=== PATIENT | female | born 1960 | race Caucasian/White ===

== ENCOUNTER 2018-11-25 20:15 | Emergency (ER) | payer OTHER ==
[2018-11-25 20:17] VITALS: PULSE 89; TEMP 98.3; BMI 28.3
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
[2018-11-25] MEDS ORDERED: ACETAMINOPHEN 325 MG TABLET (FP) PO ONE (22:27)
[2018-11-25] MEDS ORDERED: ACETAMINOPHEN 325 MG TABLET (FP) ONE (22:34)
[2018-11-25 23:04] VITALS: BP 140/73
== END 2018-11-25 23:00 | disposition home or self-care (01) ==
LOC: JERFT 20:15
DX: M54.5 Low back pain (principal); M54.2 Cervicalgia; R51 Headache; V43.52XA Car driver injured in collision with other type car in traffic accident, initial encounter; Y92.414 Local residential or business street as the place of occurrence of the external cause; Y93.89 Activity, other specified; Y99.8 Other external cause status; I10 Essential (primary) hypertension; E11.9 Type 2 diabetes mellitus without complications
CPT/HCPCS: 70450-TC; 72125-TC; 72131-TC; 99281-25

== ENCOUNTER 2020-05-20 09:50 | Inpatient (IN) | payer OTHER ==
--- NOTE | 2020-05-20 10:29 | PDOC ---
History of Present Illness - General Chief Complaint: Altered Mental Status Stated Complaint: AMS Time Seen by Provider: 05/20/20 09:58 History Source: Patient, Family (daughter) Exam Limitations: No Limitations - History of Present Illness Initial Comments: 05/20/20 10:29 59 yo female pmh HTN, HLD and DM presents to the ED for slurred speech and AMS. Daughter at the bedside states pt complaining of R arm numbness yesterday night and approx 1 hour ago, daughter notes slurred speech and altered mental status. Pt AOX3 on arrival, speaking in full sentences and unlabored. Pt denies any complaints however, hesitation noted in her speech along with difficulty following basic commands. Denies ALVARADO, LOC, changes in vision, drooling, N/V/F/C, changes in gait, weakness on 1 side of her body (however, pt noted to be holding her right arm) CP, SOB, changes in bowel or bladder habits. tPA Exclusion checklist 3-4.5h - Time Elapsed Date last known well: 05/19/20 - Thrombolytic Therapy Candidate Is patient eligible for thrombolytic therapy: No - Exclusion Criteria 3-4.5 hr SBP greater than 185 or DBP greater than 110mmHg despite tx: No Recent IC/spinal surgery,head trauma or stroke<3mos.: No Hx IC hemorrhage, IC neoplasm, AV malformation or aneurysm: No Active internal bleeding: No Blding diathesis(low plt ct, inc PTT,INR>1.7 or use of NOAC): No Symptoms suggest subarachnoid hemorrhage: No CT demonstrates multilobar infarct(>1/3 cerebral hemiphere): No Arterial puncture at noncompressible site in previous 7 days: No Blood glucose concentration less than 50mg/dL (2.7mmol/L): No - Relative Exclusion Criteria 3-4.5 hr Care team unable to determine eligibility: No IV/IA thrombolysis/thrombectomy @ another hosp prior arrival: No Life expectancy <1 yr or severe co-morbid illness: No : No Patient/family refused: No Stroke severity too mild (non-disabling): Yes Recent acute CA (w/in previous 3 months): No Seizure at onset with postictal residual neuro impairments: No Major surgery or serious trauma w/in previous 14 days: No Recent GI or hemorrhage (w/in previous 21 days): No - Add'l Relative Exclusion 3-4.5 hr Age > 80: No Hx of both diabetes AND prior ischemic stroke: No Taking an oral anticoagulant regardless of INR: No Severe Stroke (NIHSS >25): No - Ineligibility reason(s) Reasons No tPA given: Outside of window - delayed arrival NIH Stroke Scale - Last Known Well Date/Time & Onset Date Last Known Well: 05/19/20 - Initial Evaluation Level of consciousness: Alert Ask patient the month and their age: Answers both correctly Ask patient to open & close eyes; make fist and let go: Obeys both correctly Best gaze (horizontal eye movement): Normal Visual field testing: No visual field loss Facial paresis (Show teeth/raise eyebrows/close eyes tight): Normal symmetrical movement Motor Function: Left Arm: Normal Motor Function: Right Arm: Normal (extends arm 90 (or 45) degrees for 10 seconds without drift Motor Function: Left Leg: Normal (extends leg 30 degrees for 5 seconds without drift) Motor Function: Right Leg: Normal (extends leg 30 degrees for 5 seconds without drift) Limb Ataxia: No ataxia Sensory(Use pinprick test arms,legs,trunk,face/side to side): Normal Best language (Describe picture, name items, read sentences): No Aphasia Dysarthria (read several words): Mild to moderate slurring of words Extinction and Inattention: No abnormality - Total Score NIH Stroke Scale Score: 1 Past History - Medical History Allergies/Adverse Reactions: Allergies Allergy/AdvReac Type Severity Reaction Status Date / Time No Known Allergies Allergy Verified 05/21/20 08:54 Home Medications: Ambulatory Orders Metoprolol Tartrate [Lopressor -] 12.5 mg PO BID 09/04/16 Azithromycin [Zithromax -] 250 mg PO DAILY #4 tablet 09/05/16 Azithromycin [Zithromax -] 250 mg PO DAILY 4 Days tablet 09/05/16 Fluticasone Prop 0.05% Nasal [Flonase -] 1 - 2 spray NS DAILY #1 spray.pump 09/05/16 Ibuprofen 600 mg PO QID PRN #20 tablet 11/25/18 COPD: No Diabetes: Yes HTN: Yes - Psycho-Social/Smoking History Smoking History: Never smoked Have you smoked in the past 12 months: No Number of Cigarettes Smoked Daily: 20 Information on smoking cessation initiated: No - Substance Abuse Hx (Audit-C & DAST Scrn) How often the patient has a drink containing alcohol: Never Score: In Men: 4 or > Positive; In Women: 3 or > Positive: 0 Screen Result (Pos requires Nsg. Audit-10AR): Negative In the last yr the pt used illegal drug/Rx for NonMed reason: No Score: Yes response is considered Positive: 0 Screen Result (Positive result requires Nsg. DAST-10): Negative Review of Systems - Review of Systems Constitutional: Yes: Symptoms Reported HEENTM: Yes: Symptoms Reported Respiratory: Yes: Symptoms reported Cardiac (ROS): Yes: Symptoms Reported ABD/GI: Yes: Symptoms Reported : Yes: Symptoms Reported Musculoskeletal: Yes: Symptoms Reported Integumentary: Yes: Symptoms Reported Neurological: Yes: Symptoms reported *Physical Exam - Vital Signs Last Vital Signs Temp Pulse Resp BP Pulse Ox 98.8 F 108 H 20 178/57 H 98 05/20/20 10:02 05/20/20 10:02 05/20/20 10:02 05/20/20 10:02 05/20/20 10:02 - Physical Exam General Appearance: Yes: Nourished, Appropriately Dressed. No: Apparent Distress HEENT: positive: EOMI, BEATA Neck: positive: Supple. negative: Carotid bruit Respiratory/Chest: positive: Lungs Clear, Normal Breath Sounds. negative: Respiratory Distress, Accessory Muscle Use, Rapid RR, Crackles, Rales, Rhonchi, Stridor, Wheezing Cardiovascular: positive: Regular Rhythm, S1, S2, Tachycardia. negative: Edema, JVD, Murmur Vascular Pulses: Dorsalis-Pedis (R): 4+, Doralis-Pedis (L): 4+ Gastrointestinal/Abdominal: positive: Flat, Soft. negative: Pulsatile Mass, Protuberent, Distended, Guarding, Rebound, Tenderness Musculoskeletal: negative: CVA Tenderness Extremity: positive: Normal Capillary Refill, Normal Inspection, Normal Range of Motion Integumentary: positive: Normal Color, Dry, Warm Neurologic: positive: fisher lampara net II-XII NML intact, Fully Oriented, Alert, Normal Mood/Affect, Normal Response. negative: Motor Strength 5/5 (R upper ext 4/5 vs L upper ext 5/5) ED Treatment Course - LABORATORY CBC & Chemistry Diagram: 05/21/20 07:06 05/21/20 07:06 - ADDITIONAL ORDERS Additional order review: Laboratory Results 05/20/20 10:00 POC Glucometer 158 05/20/20 10:00 POC Glucometer 158 Medical Decision Making - Medical Decision Making 59 yo female pmh HTN, HLD and DM presents to the ED for slurred speech and AMS. Daughter at the bedside states pt complaining of R arm numbness yesterday night and approx 1 hour ago, daughter notes slurred speech and altered mental status. Pt AOX3 on arrival, speaking in full sentences and unlabored. Pt denies any comp laints however, hesitation noted in her speech along with difficulty following basic commands. Denies ALVARADO, LOC, changes in vision, drooling, N/V/F/C, changes in gait, weakness on 1 side of her body (however, pt noted to be holding her right arm) CP, SOB, changes in bowel or bladder habits. Vitals show elevated HR and BP CT shows non hemorhagic stroke. Pt has persistent confusion and mild focal R arm weakness. Daughter at the bed side states mother is normal at baseline and does not need any assistance. ASA full dose given and Neuro consulted Brain MRI ordered 05/20/20 13:[address] Branham, MRI shows large area of left sided stroke, will do CTA brain and assess for large vessel occlusion CTA neg for large vessel occlusion Noted Hemoglobin 7 and soft BP with maps in the 6low 60s. 500 ML bolus NS given and stool occult sent Stool occult neg. No improvement in pressure and due to stroke with more favorable hypertension, 1 unit PRBC ordered Noted repeat H of 6.6, repeat CBC [address] Gaffney accepts pt and night team aware and will follow up labs Discharge - Discharge Information Problems reviewed: Yes Clinical Impression/Diagnosis: Stroke - Admission Yes - Follow up/Referral - Patient Discharge Instructions - Post Discharge Activity
[2020-05-20] MEDS ORDERED: ASPIRIN 81 MG CHEWABLE TABLETS PO ONE (10:37)
[2020-05-20] MEDS ORDERED: ASPIRIN 81 MG CHEWABLE TABLETS ONE (10:51)
[2020-05-20 11:04] LABS: BASO % 0.5 % (0-2.0); EOS % 0.6 % (0-4.5); HEMATOCRIT 25.7 % (32.4-45.2); LYMPH % 27.6 % (8-40); MCHC 27.4 g/dl (32.0-36.0); MEAN CELL VOLUME 59.3 fl (80-96); MEAN PLT VOLUME 9.1 fl (7.5-11.1); NEUT % 65.3 % (42.8-82.8); PLATELET COUNT 259 K/MM3 (134-434); RBC 4.34 M/mm3 (3.60-5.2); WHITE BLOOD COUNT 8.5 K/mm3 (4.0-10.0)
--- NOTE | 2020-05-20 11:08 | PDOC ---
Attending Attestation - Resident Resident Name: Abhijit Herron - ED Attending Attestation I have performed the following: I have examined & evaluated the patient, The case was reviewed & discussed with the resident, I agree w/resident's findings & plan, Exceptions are as noted - HPI HPI: 05/20/20 12:14 59 years old past medical history significant for hypertension hyperlipidemia diabetes presents to the emergency department with dysarthria x1 day. Last seen normal yesterday. Also complaining of mild right hand numbness Symptoms are mild persistent constant no exacerbating or alleviating factors. - Physicial Exam PE: 05/20/20 12:14 Vitals: Triage Vital signs reviewed General Appearance: No acute distress, well nourished well developed, Head: Atraumatic, Neck: Supple; no Nucal rigidity Cardiac: Regular rate and rhythym, no murmurs, no rubs, no gallops, Lungs: Clear to auscultation bilateral, good air movement bilaterally, Abdomen: Soft, non distended, normal bowel sounds, non tender to palpation Extremities: Full range of motion to all extremities, no cyanosis, clubbing, or edema Skin: Warm and dry, no rashes or lesions, no rash, no petechiae Neuro: AOX3; cranial Nerves 2-12 grossly intact, strength intact to all extremities, sensation intact to all extremities, gait normal Psych: Normal mood, normal affect - Critical Care Time Total Critical Care Time: 45 Critical Care Statement: The care of this patient involved high complexity decision making to prevent further life threatening deterioration of the patient 's condition and/or to evaluate & treat vital organ system(s) failure or risk of failure. - Medical Decision Making 05/20/20 12:25 59 years old with likely small CVA NIHSS 1 Not in window for TPA given last known normal last night Head CT as dictated likely chronic infarcts but will need MRI for better delineation Neurology has been consulted MRI ordered full dose aspirin give Will admit to medicine for further management. Reevaluation MRI demonstrates large area of infarct case we discussed with neurology will obtain CTA Laboratory analysis notable for anemia reevaluation CTA demonstrates no large vessel occlusion guaiac-negative stool Case discussed with neurology will transfuse We will admit to medicine for further management. NIH Stroke Scale - Last Known Well Date/Time & Onset Date Last Known Well: 05/19/20 Time Last Known Well: 22:00 - Initial Evaluation Level of consciousness: Alert Ask patient the month and their age: Answers both correctly Ask patient to open & close eyes; make fist and let go: Obeys both correctly Best gaze (horizontal eye movement): Normal Visual field testing: No visual field loss Facial paresis (Show teeth/raise eyebrows/close eyes tight): Normal symmetrical movement Motor Function: Left Arm: Normal Motor Function: Right Arm: Normal (extends arm 90 (or 45) degrees for 10 seconds without drift Motor Function: Left Leg: Normal (extends leg 30 degrees for 5 seconds without drift) Motor Function: Right Leg: Normal (extends leg 30 degrees for 5 seconds without drift) Limb Ataxia: No ataxia Sensory(Use pinprick test arms,legs,trunk,face/side to side): Normal Best language (Describe picture, name items, read sentences): No Aphasia Dysarthria (read several words): Mild to moderate slurring of words Extinction and Inattention: No abnormality - Total Score NIH Stroke Scale Score: 1 Discharge - Discharge Information Problems reviewed: Yes Clinical Impression/Diagnosis: Stroke Qualifiers: CVA mechanism: unspecified Qualified Code(s): I63.9 - Cerebral infarction, unspecified - Follow up/Referral - Patient Discharge Instructions - Post Discharge Activity
[2020-05-20 11:14] LABS: INR 1.04 (0.83-1.09); PROTHROMBIN TIME (PATIENT) 12.3 SEC (9.7-13.0)
[2020-05-20 11:16] LABS: ACTIVATED PTT 27.6 SECONDS (25.2-36.5)
[2020-05-20 11:21] LABS: MCH 16.2 pg (25.7-33.7)
[2020-05-20 11:37] LABS: ALBUMIN 3.8 g/dl (3.4-5.0); BILIRUBIN,TOTAL 0.4 mg/dL (0.2-1); BLOOD UREA NITROGEN 17.2 mg/dL (7-18); CALCIUM 9.5 mg/dL (8.5-10.1); CREATININE 0.8 mg/dL (0.55-1.3); TOT PROT 7.8 g/dl (6.4-8.2)
--- NOTE | 2020-05-20 12:28 | EKG ---
Test Reason : Blood Pressure : / mmHG Vent. Rate : 094 BPM Atrial Rate : 094 BPM P-R Int : 124 ms QRS Dur : 086 ms QT Int : 366 ms P-R-T Axes : 028 003 002 degrees QTc Int : 457 ms NORMAL SINUS RHYTHM NORMAL ECG NO PREVIOUS ECGS AVAILABLE Confirmed by SONIA RIVERS MD ([id number]) on 05/20/2020 12:28:14 PM Referred By: Confirmed By:SONIA RIVERS MD
[2020-05-20 12:50] LABS: ANISOCYTOSIS 2+; MACROCYTOSIS 0; OVALOCYTE 1+; PLATELET ESTIMATE NORMAL; TEAR DROP CELLS 1+
--- NOTE | 2020-05-20 13:37 | CONSULT ---
Consult - text type - Consultation Consultation Note: Neurology History of Present Illness Chief Complaint: Altered Mental Status - History of Present Illness 59 yo female pmh HTN, HLD and DM presents to the ED for slurred speech and AMS. Daughter at the bedside stated pt complaining of R arm numbness yesterday night and approx 1 hour ago, daughter notes slurred speech and altered mental status and patient was brought to the hospital. Pt AOX3 on arrival, speaking in full sentences and unlabored. during my visit, she did have some hesitation in her speech. I discussed with him results of noncontrast head CT which showed no acute changes. Not TPA candidate as out of window and minimal deficit of speech hesitation. Strength, sensory, mental status were all within normal limits. Discussed with ER, patient does not take a daily aspirin at this time and advised to initiate. MRI brain recommended,, lipid panel. Past History - Medical History Allergies/Adverse Reactions: Allergies Allergy/AdvReac Type Severity Reaction Status Date / Time No Known Allergies Allergy Verified 11/25/18 20:15 Home Medications: Ambulatory Orders Ibuprofen 600 mg PO QID PRN #20 tablet 11/25/18 COPD: No Diabetes: Yes HTN: Yes - Psycho-Social/Smoking History Smoking History: Never smoked Have you smoked in the past 12 months: No Number of Cigarettes Smoked Daily: 20 Information on smoking cessation initiated: No - Substance Abuse Hx (Audit-C & DAST Scrn) How often the patient has a drink containing alcohol: Never Score: In Men: 4 or > Positive; In Women: 3 or > Positive: 0 Screen Result (Pos requires Nsg. Audit-10AR): Negative In the last yr the pt used illegal drug/Rx for NonMed reason: No Score: Yes response is considered Positive: 0 Screen Result (Positive result requires Nsg. DAST-10): Negative REVIEW OF SYSTEMS CONSTITUTIONAL: Absent: fever, chills, diaphoresis, + generalized weakness, malaise HEENT: Absent: rhinorrhea, nasal congestion, throat pain, throat swelling, difficulty swallowing, mouth swelling, ear pain, eye pain, visual changes CARDIOVASCULAR: Absent: chest pain, syncope, palpitations, irregular heart rate, l ightheadedness, peripheral edema RESPIRATORY: Absent: cough, shortness of breath, dyspnea with exertion, orthopnea, wheezing, stridor, hemoptysis GASTROINTESTINAL: Absent: abdominal pain, abdominal distension, nausea GENITOURINARY: Absent: dysuria, frequency, urgency, MUSCULOSKELETAL: Absent: myalgia, SKIN: Absent: rash, itching, pallor HEMATOLOGIC/IMMUNOLOGIC: Absent: easy bleeding, easy bruising, lymphadenopathy, frequent infections ENDOCRINE: Absent: unexplained weight gain, unexplained weight loss, heat intolerance, cold intolerance NEUROLOGIC: Absent: headache, focal weakness or paresthesias, dizziness, seizure, PSYCHIATRIC: Absent: anxiety, depression, suicidal or homicidal ideation, hallucinations. *Physical Exam Vital Signs Period Temp Pulse Resp BP Sys/Marr Pulse Ox Last 24 Hr 98.8 F 94-108 18-20 148-178/57-58 98-98 Gen: Awake, alert, responds to questions appropriately Card: RRR, nml S1,S2 Resp: Normal symmetric effort, lungs clear to auscultation Abdomen: Soft, nontender, bowel sounds active Musculoskeletal: Adequate range of motion without significant deformity Head atraumatic and normocephalic CN: PERRL, EOMI intact, no apparent facial droop, no abnormalities in facial sensation, palate elevates, uvula and tongue midline, speech hesitation noted Motor: Strength intact to confrontation in upper and lower extremities. Tone normal throughout Sensory: Intact to Temperature, light touch, and pinprick in all extremities Reflexes: 2+ biceps, brachioradialis, patellar, achillies Coordination: Intact on [id number] testing CBCD WBC 8.5 K/mm3 (4.0-10.0) 05/20/20 10:10 RBC 4.34 M/mm3 (3.60-5.2) 05/20/20 10:10 Hgb 7.0 GM/dL (10.7-15.3) L 05/20/20 10:10 Hct 25.7 % (32.4-45.2) L 05/20/20 10:10 MCV 59.3 fl (80-96) L 05/20/20 10:10 MCHC 27.4 g/dl (32.0-36.0) L 05/20/20 10:10 RDW 22.0 % (11.6-15.6) H 05/20/20 10:10 Plt Count 259 K/MM3 (134-434) 05/20/20 10:10 MPV 9.1 fl (7.5-11.1) 05/20/20 10:10 CMP Sodium 140 mmol/L (136-145) 05/20/20 10:10 Potassium 4.0 mmol/L (3.5-5.1) 05/20/20 10:10 Chloride 107 mmol/L (98-107) 05/20/20 10:10 Carbon Dioxide 23 mmol/L (21-32) 05/20/20 10:10 Anion Gap 10 MMOL/L (8-16) 05/20/20 10:10 BUN 17.2 mg/dL (7-18) 05/20/20 10:10 Creatinine 0.8 mg/dL (0.55-1.3) 05/20/20 10:10 Random Glucose 172 mg/dL (74-106) H 05/20/20 10:10 Calcium 9.5 mg/dL (8.5-10.1) 05/20/20 10:10 Total Bilirubin 0.4 mg/dL (0.2-1) 05/20/20 10:10 AST 18 U/L (15-37) 05/20/20 10:10 ALT 22 U/L (13-61) 05/20/20 10:10 Alkaline Phosphatase 165 U/L (45-117) H 05/20/20 10:10 Total Protein 7.8 g/dl (6.4-8.2) 05/20/20 10:10 Albumin 3.8 g/dl (3.4-5.0) 05/20/20 10:10 CARDIAC ENZYMES Creatine Kinase 63 U/L (26-192) 05/20/20 10:10 Troponin I < 0.02 ng/ml (0.00-0.05) 05/20/20 10:10 Plan: 59 yo female pmh HTN, HLD and DM presents to the ED for slurred speech and AMS. Daughter at the bedside stated pt complaining of R arm numbness yesterday night and approx 1 hour ago, daughter notes slurred speech and altered mental status and patient was brought to the hospital. Pt AOX3 on arrival, speaking in full sentences and unlabored. during my visit, she did have some hesitation in her speech. I discussed with him results of noncontrast head CT which showed no acute changes. Not TPA candidate as out of window and minimal deficit of speech hesitation. Strength, sensory, mental status were all within normal limits. Discussed with ER, patient does not take a daily aspirin at this time and advised to initiate. MRI brain recommended,, lipid panel. Monitor blood pressure, maintain < 180/110 for now. Monitor ddiabetes, maintain euglycemic range, tight glycemic control.. Monitor lipid profile, statin therapy for now. Speech/swallow eval.
[2020-05-20 14:56] LABS: PH,URINE 5.5 (5.0-8.0); URINE APPEARANCE CLEAR; URINE BILIRUBIN NEGATIVE (NEGATIVE); URINE COLOR YELLOW; URINE GLUCOSE (UA) 3+ (NEGATIVE); URINE KETONE NEGATIVE (NEGATIVE); URINE LEUK ESTERASE NEGATIVE (NEGATIVE); URINE NITRITE NEGATIVE (NEGATIVE); URINE PROTEIN NEGATIVE (NEGATIVE)
[2020-05-20 18:19] LABS: HEMATOCRIT 24.1 % (32.4-45.2); MCHC 27.4 g/dl (32.0-36.0); MEAN CELL VOLUME 58.9 fl (80-96); MEAN PLT VOLUME 8.8 fl (7.5-11.1); PLATELET COUNT 223 K/MM3 (134-434); RBC 4.09 M/mm3 (3.60-5.2); RDW 21.6 % (11.6-15.6); WHITE BLOOD COUNT 7.7 K/mm3 (4.0-10.0)
[2020-05-20 18:21] LABS: MCH 16.1 pg (25.7-33.7)
[2020-05-20 18:22] LABS: HEMOGLOBIN 6.6 GM/dL (10.7-15.3)
--- NOTE | 2020-05-20 21:24 | HP ---
Admitting History and Physical - Admission History of Present Illness: Pt is a 59 y/o female who is a poor historian and has a PMH significant for HTN, HLD and DM Pt presented to the ER slurred speech and AMS. As per medical record daughter stated that pt was complaining of R arm numbness the previous night and approximately 1 hour prior to coming to ER daughter noted slurred speech and altered mental status. In the ER ct scan head showed lt frontal/parietal infarcts. Pt was outside of window for thrombolytics. - Past Medical History Cardiovascular: Yes: HTN, Hyperlipdemia Endocrine: Yes: Diabetes Mellitus - Smoking History Smoking history: Never smoked Have you smoked in the past 12 months: No Aproximately how many cigarettes per day: 20 Home Medications - Allergies Allergies/Adverse Reactions: Allergies Allergy/AdvReac Type Severity Reaction Status Date / Time No Known Allergies Allergy Verified 11/25/18 20:15 - Home Medications Home Medications: Ambulatory Orders Ibuprofen 600 mg PO QID PRN #20 tablet 11/25/18 Family Medical History Family History: Unremarkable Review of Systems - Review of Systems Constitutional: reports: Weakness Eyes: reports: No Symptoms HENT: reports: No Symptoms Neck: reports: No Symptoms Cardiovascular: reports: No Symptoms Respiratory: reports: No Symptoms Gastrointestinal: reports: No Symptoms Genitourinary: reports: No Symptoms Physical Examination Vital Signs: Vital Signs Temperature 98.3 F 05/20/20 20:11 Pulse Rate 66 05/20/20 20:11 Respiratory Rate 13 05/20/20 20:11 Blood Pressure 149/49 L 05/20/20 20:11 O2 Sat by Pulse Oximetry (%) 97 05/20/20 20:11 Constitutional: Yes: No Distress Eyes: Yes: WNL HENT: Yes: WNL Neck: Yes: WNL, Supple Cardiovascular: Yes: WNL, Regular Rate and Rhythm Respiratory: Yes: WNL, Regular, CTA Bilaterally Gastrointestinal: Yes: WNL, Normal Bowel Sounds, Soft Extremities: Yes: WNL Edema: No Neurological: Yes: WNL, Alert, Oriented ...Motor Strength: WNL Labs: CBC, BMP 05/20/20 18:00 05/20/20 10:10 Problem List - Problems (1) CVA (cerebral vascular accident) Assessment/Plan: CTA head was unremarkable MRI brain showed multiple infarcts Lt parietal/frontal areas Cont asa/lipitor Check echo/carotid dopplers Neuro/cardio consults Code(s): I63.9 - CEREBRAL INFARCTION, UNSPECIFIED
[2020-05-20] MEDS ORDERED: ATORVASTATIN CA 20 MG TABLET (FP) PO SCH (22:00)
[2020-05-20] MEDS ORDERED: HEPARIN NA (PORCINE) 5,000 UNITS/ML 1ML VIAL ONE (22:59)
[2020-05-20] MEDS ORDERED: ATORVASTATIN CA 20 MG TABLET (FP) ONE (22:59)
[2020-05-20] MEDS: HEPARIN NA (PORCINE) 5,000 UNITS/ML 1ML VIAL SQ SCH (23:07)
[2020-05-21 01:37] VITALS: BMI 27.5
[2020-05-21 08:02] LABS: BASO % 0.5 % (0-2.0); EOS % 1.1 % (0-4.5); HEMATOCRIT 27.2 % (32.4-45.2); HEMOGLOBIN 7.8 GM/dL (10.7-15.3); LYMPH % 34.7 % (8-40); MCHC 28.5 g/dl (32.0-36.0); MEAN CELL VOLUME 61.4 fl (80-96); MEAN PLT VOLUME 8.5 fl (7.5-11.1); MONO % 7.3 % (3.8-10.2); NEUT % 56.4 % (42.8-82.8); PLATELET COUNT 226 K/MM3 (134-434); RBC 4.42 M/mm3 (3.60-5.2); RDW 24.3 % (11.6-15.6); WHITE BLOOD COUNT 7.9 K/mm3 (4.0-10.0)
[2020-05-21 08:25] LABS: ALBUMIN 3.4 g/dl (3.4-5.0); BILIRUBIN,TOTAL 0.6 mg/dL (0.2-1); BLOOD UREA NITROGEN 16.6 mg/dL (7-18); CALCIUM 8.8 mg/dL (8.5-10.1); CREATININE 0.6 mg/dL (0.55-1.3); POTASSIUM 3.9 mmol/L (3.5-5.1); TOT PROT 7.2 g/dl (6.4-8.2)
[2020-05-21 08:41] LABS: MCH 17.5 pg (25.7-33.7)
[2020-05-21] MEDS: HEPARIN NA (PORCINE) 5,000 UNITS/ML 1ML VIAL SQ SCH ×2 (09:28→22:00)
[2020-05-21] MEDS: ASPIRIN 81 MG CHEWABLE TABLETS PO SCH (09:28)
--- NOTE | 2020-05-21 09:42 | PN ---
Progress Note (short form) - Note Progress Note: Neurology History of Present Illness 59 yo female pmh HTN, HLD and DM presents to the ED for slurred speech and AMS. Daughter at the bedside stated pt complaining of R arm numbness yesterday night and approx 1 hour prior to admission, daughter noted slurred speech and altered mental status and patient was brought to the hospital. Pt AOX3 on arrival, speaking in full sentences and unlabored. during my visit, she did have some hesitation in her speech. I discussed with him results of noncontrast head CT which showed no acute changes. Not TPA candidate as out of window and minimal deficit of speech hesitation. MRI brain completed, discussed with ER, acute/subacute, L sided, parieto-occipital but also frontal. Advised CTA to eval for possibly inverntion, CTA negative. Patient needs further workup including ca rotid doppler, tele monitoring for Afib, speech/swallow eval. Active Medications Aspirin (Asa -) 81 mg PO DAILY [facility] Last Admin: 05/21/20 09:28 Dose: 81 mg Documented by: Atorvastatin Calcium (Lipitor -) 20 mg PO HS [facility] Last Admin: 05/20/20 23:08 Dose: 20 mg Documented by: Heparin Sodium (Porcine) (Heparin -) 5,000 unit SQ BID [facility] Last Admin: 05/21/20 09:28 Dose: 5,000 unit Documented by: Vital Signs Period Temp Pulse Resp BP Sys/Marr Pulse Ox Last 24 Hr 97.7 F-99.2 F 64-108 11-20 122-178/40-65 96-98 CBCD WBC 7.9 K/mm3 (4.0-10.0) 05/21/20 07:06 RBC 4.42 M/mm3 (3.60-5.2) 05/21/20 07:06 Hgb 7.8 GM/dL (10.7-15.3) L 05/21/20 07:06 Hct 27.2 % (32.4-45.2) L 05/21/20 07:06 MCV 61.4 fl (80-96) L 05/21/20 07:06 MCHC 28.5 g/dl (32.0-36.0) L 05/21/20 07:06 RDW 24.3 % (11.6-15.6) H 05/21/20 07:06 Plt Count 226 K/MM3 (134-434) 05/21/20 07:06 MPV 8.5 fl (7.5-11.1) 05/21/20 07:06 CMP Sodium 138 mmol/L (136-145) 05/21/20 07:06 Potassium 3.9 mmol/L (3.5-5.1) 05/21/20 07:06 Chloride 108 mmol/L (98-107) H 05/21/20 07:06 Carbon Dioxide 24 mmol/L (21-32) 05/21/20 07:06 Anion Gap 5 MMOL/L (8-16) L 05/21/20 07:06 BUN 16.6 mg/dL (7-18) 05/21/20 07:06 Creatinine 0.6 mg/dL (0.55-1.3) 05/21/20 07:06 Random Glucose 87 mg/dL (74-106) 05/21/20 07:06 Calcium 8.8 mg/dL (8.5-10.1) 05/21/20 07:06 Total Bilirubin 0.6 mg/dL (0.2-1) 05/21/20 07:06 AST 20 U/L (15-37) 05/21/20 07:06 ALT 20 U/L (13-61) 05/21/20 07:06 Alkaline Phosphatase 148 U/L (45-117) H 05/21/20 07:06 Total Protein 7.2 g/dl (6.4-8.2) 05/21/20 07:06 Albumin 3.4 g/dl (3.4-5.0) 05/21/20 07:06 CARDIAC ENZYMES Creatine Kinase 77 U/L (26-192) 05/20/20 23:25 Troponin I < 0.02 ng/ml (0.00-0.05) 05/20/20 23:25 Plan: 59 yo female pmh HTN, HLD and DM presents to the ED for slurred speech and AMS. Daughter at the bedside stated pt complaining of R arm numbness yesterday night and approx 1 hour ago, daughter notes slurred speech and altered mental status and patient was brought to the hospital. Pt AOX3 on arrival, speaking in full se ntences and unlabored. during my visit, she did have some hesitation in her speech. I discussed with him results of noncontrast head CT which showed no acute changes. Not TPA candidate as out of window and minimal deficit of speech hesitation. MRI brain completed, discussed with ER, acute/subacute, L sided, parieto-occipital but also frontal. Advised CTA to eval for possibly inverntion, CTA negative. Patient needs further workup including carotid doppler, tele monitoring for Afib, speech/swallow eval. LDL 147, will increase statin to 40mg. Monitor blood pressure, maintain < 160/100 for now. Monitor ddiabetes, maintain euglycemic range, tight glycemic control.. PT/OT as tolerated. Speech/swallow eval.
--- NOTE | 2020-05-21 11:01 | ECHO ---
Name: BEREKET DEL ROSARIO Exam:Adult Echocardiogram Study Date: 05/21/2020 10:13 AM Age: 59 yrs Reason For Study: CVA MMode/2D Measurements & Calculations IVSd: 1.0 cm Ao root diam: 2.4 cm LVIDd: 3.5 cm LA dimension: 3.6 cm LVIDs: 2.4 cm LVPWd: 1.3 cm LVPWs: 1.4 cm EDV(Teich): 49.5 ml ESV(Teich): 19.9 ml LAV (MOD-bp): 50.0 ml TAPSE: 1.8 cm RV S Tor: 19.1 cm/sec Doppler Measurements & Calculations MV E max tor: 79.5 cm/sec Ao V2 max: 129.9 cm/sec MV A max tor: 60.2 cm/sec Ao max P.8 mmHg MV E/A: 1.3 MV dec time: 0.25 sec LV V1 max P.6 mmHg PA V2 max: 120.1 cm/sec LV V1 max: 94.3 cm/sec PA max P.8 mmHg Med Peak E' Tor: 5.9 cm/sec Med E/e': 13.4 Lat Peak E' Tor: 9.0 cm/sec Lat E/e': 8.8 Procedure A complete two-dimensional transthoracic echocardiogram was performed (2D, M-mode, Doppler and color flow Doppler). The patient was in normal sinus rhythm during the exam. Left Ventricle The left ventricular size, thickness and function are normal. Ejection Fraction = 65%. E/A reversal c onsistent with but not diagnostic of poor LV compliance. The left ventricular wall motion is normal. Right Ventricle The right ventricle is normal in size and function. Atria Normal left and right atrial size and function. Mitral Valve The mitral valve is normal in structure and function. There is trace to mild mitral regurgitation. Tricuspid Valve The tricuspid valve is normal in structure and function. There is trace tricuspid regurgitation. Ther e was insufficient TR detected to calculate RV systolic pressure. Aortic Valve The aortic valve is normal in structure and function. Great Vessels The aortic root is normal size. Pericardium/Pleura There is no pericardial effusion. There is no pleural effusion. Interpretation Summary This degree of valvular regurgitation is within normal limits. The left ventricular size, thickness a nd function are normal Ejection Fraction = 65%. MD Migue Chowdary 05/21/2020 11:00 AM
--- NOTE | 2020-05-21 13:49 | CON.CARD ---
Consult Consult Specialty:: cardiology Reason for Consultation:: CVA - History of Present Illness Chief Complaint: Pt A&Ox3; moves all extremities well; hesitatant speech when answering questions History of Present Illness: Ms. Hoyt is a 59 yo female with pmh HTN, diastolic CHF, HLD, anemia, and DM, who presents to the ED for slurred speech and AMS. Daughter at the bedside stated pt complaining of R arm numbness yesterday night and approx 1 hour ago, with slurred speech and altered mental status. Pt AOX3 on arrival was speaking in full sentences, with some hesitation in speech, per neurologist. Noncontrast head CT showed no acute changes. Not TPA candidate, as out of window and minimal deficit of speech hesitation. Strength, sensory, mental status were all within normal limits. Dr. Branham, neurologist, recommended ASA; MRI brain, lipid panel. 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 Cardio/Vascular: Yes: HTN, Hyperlipdemia Pulmonary: No: Asthma Reproductive: Yes: Postmenopausal ...: No Heme/Onc: Yes: Anemia Endocrine: Yes: Diabetes Mellitus - Alcohol/Substance Use Hx Alcohol Use: No - Smoking History Smoking history: Current every day smoker Have you smoked in the past 12 months: Yes Aproximately how many cigarettes per day: 20 Home Medications - Allergies Allergies/Adverse Reactions: Allergies Allergy/AdvReac Type Severity Reaction Status Date / Time No Known Allergies Allergy Verified 05/21/20 08:54 - Home Medications Home Medications: Ambulatory Orders Metoprolol Tartrate [Lopressor -] 12.5 mg PO BID 09/04/16 Azithromycin [Zithromax -] 250 mg PO DAILY #4 tablet 09/05/16 Azithromycin [Zithromax -] 250 mg PO DAILY 4 Days tablet 09/05/16 Fluticasone Prop 0.05% Nasal [Flonase -] 1 - 2 spray NS DAILY #1 spray.pump 09/05/16 Ibuprofen 600 mg PO QID PRN #20 tablet 11/25/18 Review of Systems - Review of Systems Constitutional: reports: No Symptoms Eyes: reports: No Symptoms HENT: reports: No Symptoms Neck: reports: No Symptoms Cardiovascular: denies: No Symptoms Respiratory: reports: No Symptoms Gastrointestinal: denies: No Symptoms Genitourinary: reports: No Symptoms Breasts: reports: No Symptoms Reported Musculoskeletal: reports: No Symptoms Integumentary: reports: No Symptoms Neurological: reports: Change in Speech Endocrine: reports: No Symptoms Hematology/Lymphatic: reports: No Symptoms Psychiatric: reports: Anxiety - Risk Factors Known Risk Factors: Yes: Age, Diabetes Mellitus, Hypercholesterolemia, Hypertension, Physical Inactivity Vital Signs: Vital Signs Temperature 98.1 F 05/21/20 09:00 Pulse Rate 72 05/21/20 09:00 Respiratory Rate 18 05/21/20 09:00 Blood Pressure 148/64 05/21/20 09:00 O2 Sat by Pulse Oximetry (%) 97 05/21/20 09:00 Constitutional: Yes: Well Nourished, Anxious Eyes: Yes: WNL HENT: Yes: WNL Neck: Yes: WNL Respiratory: Yes: WNL Gastrointestinal: Yes: WNL Renal/: No: Anuria Cardiovascular: Yes: WNL JVD: No Carotid Bruit: No PMI: Non-Displaced Heart Sounds: Yes: S1, S2 Murmur: No: Diastolic Murmur Musculoskeletal: Yes: WNL Extremities: Yes: WNL Edema: No Peripheral Pulses WNL: Yes Integumentary: Yes: WNL Neurological: Yes: Alert, Oriented, Dysarthria, Weakness Psychiatric: Yes: Alert, Oriented, Other (anxiety) - Other Data Labs, Other Data: CBC, BMP 05/21/20 07:06 05/21/20 07:06 INR, PTT INR 1.04 (0.83-1.09) 05/20/20 10:10 Troponin, BNP 05/20/20 23:25 Troponin I < 0.02 Troponin, BNP 05/20/20 23:25 Troponin I < 0.02 Abnormal Lab Results 05/22/20 05/22/20 06:00 06:00 Hgb 7.6 L Hct 26.5 L MCV 61.1 L MCH 17.5 L MCHC 28.7 L RDW 24.4 H Lymphocytes % 40.5 H Chloride 109 H BUN 23.8 H Random Glucose 123 H Alkaline Phosphatase 143 H Problem List - Problems (1) Diabetes Code(s): E11.9 - TYPE 2 DIABETES MELLITUS WITHOUT COMPLICATIONS (2) Anemia Code(s): D64.9 - ANEMIA, UNSPECIFIED (3) CVA (cerebral vascular accident) Code(s): I63.9 - CEREBRAL INFARCTION, UNSPECIFIED (4) Carotid stenosis Code(s): I65.29 - OCCLUSION AND STENOSIS OF UNSPECIFIED CAROTID ARTERY (5) HLD (hyperlipidemia) Code(s): E78.5 - HYPERLIPIDEMIA, UNSPECIFIED Assessment/Plan COVID not detected Acute/subacute cerebral infarcts HTN DM Hyperlipidemia Diastolic CHF anemia long-term cigarette smoker Plan: MRI brain: multiple left-sided acute/subacute infarcts. Carotid US: moderate plaque with 70% to near-occlusion of bifurcation/bulb CCA; f/u CTA neck, vascular team. TNI < 0.02 x 2 EKG: normal sinus rhythm; normal study ECHO: normal LVEF; diastolic dysfunction; trace-mild MR; trace TR. elevated LDL cholesterol, low HDL; on atorvastatin (start high-dose). Help with cigarette cessation Plan on coronary artery evaluation when stable.
--- NOTE | 2020-05-21 15:45 | CONSULT ---
Admitting History and Physical - Primary Care Physician PCP: Bertha Gaffney - Admission History of Present Illness: 59 yo female pmh HTN, HLD and DM presents to the ED for slurred speech AMS, R arm numbness speech hesitation. MRI brain: multiple left-sided acute/subacute cortical/subcortical infarcts. 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 Cardiovascular: Yes: HTN, Hyperlipdemia ...: No Heme/Onc: Yes: Anemia Endocrine: Yes: Diabetes Mellitus - Smoking History Smoking history: Never smoked Have you smoked in the past 12 months: No Aproximately how many cigarettes per day: 20 - Alcohol/Substance Use Hx Alcohol Use: No History - Admission Reason For Visit: CVA - Diagnostics MRI: Report Reviewed (MRI brain: multiple left-sided acute/subacute cortical/subcortical infarcts.) Other: Report Reviewed (Carotid US: moderate plaque with 70% to near-occlusion of bifurcation/bulb CCA) - General Mental Status: Alert and Oriented, Awake and Alert, Able to Follow Commands Attention: Intact Ability to Follow Directions: Fair Head/Neck Control: Good - Hearing Hearing: Normal Hearing Aide: No With Patient: No Speech Evaluation - Communication Primary Language: MALAGASY Communication: Yes: Aphasia Oral Expression Ability: Yes: Moderate Impairment - Speech Production Able to Make Needs Known: Yes: Moderately Impaired Intelligibility: Yes: WNL - Speech Characteristics Voice Loudness: Normal Voice Pitch: Yes: Normal Voice Phonatory-based Quality: Yes: Normal Speech Pattern: Impaired Speech Clarity: < 100% Nasal Resonance: Normal Articulation: Yes: Precise - Language/Auditory Comprehension Follows: Yes: 1 Stage Simple Commands, 2 Stage Simple Commands (Slow to process and respond to simple 2 step directives) Observation: Able to respond to yes/no queries: Yes, Comprehends Conversational Speech: No (simple, slow presentation), Benefits from Slow Speech: Yes, Benefits from Repetiton: Yes - Language/Verbal Expression Aphasia: Yes: Nonfluent, Anomia Able to Respond to Simple Queries: Yes: Moderately Impaired Able to Communicate Wants and Needs: Yes: Moderately Impaired Functional Communication Status: Yes: Moderately Impaired Attempts to Correct Errors: Yes - 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: WNL Short Term Memory: Yes: WNL - Swallow Evaluation/Bedside Assessment Current Nutritional Intake: Regular, Thin Liquids Oral Secretions: Yes: WFL Dentition: Yes: Adequate Facial Symmetry at Rest: Symmetrical Facial Symmetry on Retraction: Symmetrical Facial Movement: Controlled Sensation: Normal Against Resistance Opening: Normal Against Resistance Closing: Normal Pucker Lips: Normal Smile: Normal Lingual Movement: Normal, Symmetric Lingual Speed of Movement: Normal Lingual Movement Strgth Against Opposition: Normal Lingual Movement Characteristics: Normal Velopharyngeal Movement: Normal Laryngeal Elevation: WFL Laryngeal Movement: Able to Palpate Rate of Intake: WFL Bolus Size: WFL Labial Seal: WFL Chewing: WFL Oral Prep Time: WFL A-P Transit: WFL Pocketing: None Timing of Swallow: WFL Coughing/Throat Clear: No Change in Voice: No Recommendations - Speech Evaluation, Impression/Plan Impression: 59 yo w, premorbidly, fully functional in ADL and communication, 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 She seems cognitively intact. She is producing simple, hesitant basic sentences, hesitant in word retrieval. She can not express herself in longer sentnces or pair sentences t ogether.Good simple confrontation naming.Reading/writing not assessed yet but likely impaired. - Disposition Discharge to: Rehabilitation Center (Excellent candidate for intensive, acute rehabilitation to return to prior level of functioning for ADL and maybe work) - Dysphagia Impressions/Plan Swallowing Skills: WF Dysphagia Impressions: No Impairment - Recommendations Diet Consistency: Regular Medication Administration: Whole with water Liquids: Thin Liquids
--- NOTE | 2020-05-21 17:55 | CON.HO ---
Consult Consult Specialty:: Hematology Reason for Consultation:: Anemia - History of Present Illness History of Present Illness: 59 y/o lady who is a poor historian and has a PMH significant for HTN, HLD and DM Pt presented to the ER slurred speech and AMS. As per medical record daughter stated that pt was complaining of R arm numbness the previous night and approximately 1 hour prior to coming to ER daughter noted slurred speech and altered mental status. In the ER ct scan head showed lt frontal/parietal infarcts. Pt was outside of window for thrombolytics. Hematology consulted for anemia. 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 Cardio/Vascular: Yes: HTN, Hyperlipdemia ...: No Endocrine: Yes: Diabetes Mellitus - Alcohol/Substance Use Hx Alcohol Use: No - Smoking History Smoking history: Never smoked Have you smoked in the past 12 months: No Aproximately how many cigarettes per day: 20 Home Medications - Allergies Allergies/Adverse Reactions: Allergies Allergy/AdvReac Type Severity Reaction Status Date / Time No Known Allergies Allergy Verified 05/21/20 08:54 - Home Medications Home Medications: Ambulatory Orders Metoprolol Tartrate [Lopressor -] 12.5 mg PO BID 09/04/16 Azithromycin [Zithromax -] 250 mg PO DAILY #4 tablet 09/05/16 Azithromycin [Zithromax -] 250 mg PO DAILY 4 Days tablet 09/05/16 Fluticasone Prop 0.05% Nasal [Flonase -] 1 - 2 spray NS DAILY #1 spray.pump 09/05/16 Ibuprofen 600 mg PO QID PRN #20 tablet 11/25/18 Review of Systems - Review of Systems Constitutional: reports: No Symptoms Eyes: reports: No Symptoms HENT: reports: No Symptoms Neck: reports: No Symptoms Cardiovascular: reports: No Symptoms Respiratory: reports: No Symptoms Gastrointestinal: reports: No Symptoms Genitourinary: reports: No Symptoms Musculoskeletal: reports: No Symptoms Integumentary: reports: No Symptoms Neurological: reports: Other Hematology/Lymphatic: reports: No Symptoms Psychiatric: reports: No Symptoms Physical Exam Vital Signs: Vital Signs Temperature 98.0 F 05/21/20 17:00 Pulse Rate 73 05/21/20 17:00 Respiratory Rate 20 05/21/20 17:00 Blood Pressure 156/83 05/21/20 17:00 O2 Sat by Pulse Oximetry (%) 97 05/21/20 09:00 Constitutional: Yes: Well Nourished, No Distress, Calm Eyes: Yes: WNL, Conjunctiva Clear, EOM Intact HENT: Yes: WNL, Atraumatic, Normocephalic Neck: Yes: WNL, Supple, Trachea Midline Cardiovascular: Yes: WNL, Regular Rate and Rhythm Respiratory: Yes: WNL, Regular, CTA Bilaterally Gastrointestinal: Yes: WNL, Normal Bowel Sounds, Soft Musculoskeletal: Yes: WNL Extremities: Yes: WNL Labs: CBC, BMP 05/21/20 07:06 05/21/20 07:06 Assessment/Plan 59 y/o lady who is a poor historian and has a PMH significant for HTN, HLD and DM Pt presented to the ER slurred speech and AMS. As per medical record daughter stated that pt was complaining of R arm numbness the previous night and approximately 1 hour prior to coming to ER daughter noted slurred speech and altered mental status. In the ER ct scan head showed lt frontal/parietal-pa rieto-occipital infarcts. Hematology consulted for anemia. Pt denied prior history or family cases. Denied other hematologic or oncologic problems however no optimal historian. Denied having colonoscopy Recommend: 1) Anemia, microcytic and hypochromic. Obtain: Iron profile: Fe, TIBC, Ferritin; LDH, Haptoglobin, Vitamin B12, Folate levels and hemoglobin electrophoresis. 2) Guaiac Stools X3. Repeat UA. 3) Consider GI evaluation if SHANIA is diagnosed. 4) Thank you very much for this consultation
--- NOTE | 2020-05-21 21:56 | PN ---
Progress Note, Physician History of Present Illness: Pt w/ aphasia - Current Medication List Current Medications: Active Medications Aspirin (Asa -) 81 mg PO DAILY [facility] Last Admin: 05/21/20 09:28 Dose: 81 mg Documented by: Atorvastatin Calcium (Lipitor -) 40 mg PO HS [facility] Heparin Sodium (Porcine) (Heparin -) 5,000 unit SQ BID [facility] Last Admin: 05/21/20 09:28 Dose: 5,000 unit Documented by: - Objective Vital Signs: Vital Signs Temperature 98.0 F 05/21/20 17:00 Pulse Rate 73 05/21/20 17:00 Respiratory Rate 05/21/20 17:00 Blood Pressure 156/83 05/21/20 17:00 O2 Sat by Pulse Oximetry (%) 97 05/21/20 09:00 Cardiovascular: Yes: WNL, Regular Rate and Rhythm Respiratory: Yes: WNL, Regular, CTA Bilaterally Gastrointestinal: Yes: WNL, Normal Bowel Sounds, Soft Neurological: Yes: Aphasia ...Motor Strength: WNL Labs: CBC, BMP 05/21/20 07:06 05/21/20 07:06 INR, PTT INR 1.04 (0.83-1.09) 05/20/20 10:10 Problem List - Problems (1) CVA (cerebral vascular accident) Assessment/Plan: CTA head was unremarkable MRI brain showed multiple infarcts Lt parietal/frontal areas Cont asa/lipitor Echo unremarkable Carotid doppler: 70% occulsion bifurcation/bulb Check CTA neck Vascular surgery consult Code(s): I63.9 - CEREBRAL INFARCTION, UNSPECIFIED (2) HLD (hyperlipidemia) Assessment/Plan: Cont lipitor Code(s): E78.5 - HYPERLIPIDEMIA, UNSPECIFIED (3) Carotid stenosis Assessment/Plan: carotid doppler shows 70% occulsion bifurcation/bulb Check CTA neck Vasc consult Code(s): I65.29 - OCCLUSION AND STENOSIS OF UNSPECIFIED CAROTID ARTERY (4) Anemia Assessment/Plan: Cont to follow H/H Heme consult noted Code(s): D64.9 - ANEMIA, UNSPECIFIED
[2020-05-21] MEDS: ATORVASTATIN CA 40 MG TABLET (FP) PO SCH (22:00)
[2020-05-22 07:24] LABS: BASO % 0.5 % (0-2.0); EOS % 1.4 % (0-4.5); HEMATOCRIT 26.5 % (32.4-45.2); HEMOGLOBIN 7.6 GM/dL (10.7-15.3); LYMPH % 40.5 % (8-40); MCHC 28.7 g/dl (32.0-36.0); MEAN CELL VOLUME 61.1 fl (80-96); MEAN PLT VOLUME 8.4 fl (7.5-11.1); MONO % 9.4 % (3.8-10.2); NEUT % 48.2 % (42.8-82.8); PLATELET COUNT 221 K/MM3 (134-434); RBC 4.34 M/mm3 (3.60-5.2); RDW 24.4 % (11.6-15.6); WHITE BLOOD COUNT 6.7 K/mm3 (4.0-10.0)
[2020-05-22 07:54] LABS: ALBUMIN 3.4 g/dl (3.4-5.0); ALK PHOS 143 U/L (45-117); ANION GAP 8 MMOL/L (8-16); BILIRUBIN,TOTAL 0.5 mg/dL (0.2-1); BLOOD UREA NITROGEN 23.8 mg/dL (7-18); CALCIUM 8.9 mg/dL (8.5-10.1); CHLORIDE 109 mmol/L (98-107); CO2 23 mmol/L (21-32); GLUCOSE,RANDOM 123 mg/dL (74-106); MCH 17.5 pg (25.7-33.7); POTASSIUM 3.9 mmol/L (3.5-5.1); SGOT/AST 18 U/L (15-37); SGPT/ALT 18 U/L (13-61); SODIUM 141 mmol/L (136-145)
[2020-05-22 08:05] LABS: CREATININE 0.6 mg/dL (0.55-1.3)
--- NOTE | 2020-05-22 08:45 | PN ---
Progress Note (short form) - Note Progress Note: Neurology History of Present Illness 59 yo female pmh HTN, HLD and DM presents to the ED for slurred speech and AMS. Daughter at the bedside stated pt complaining of R arm numbness yesterday night and approx 1 hour prior to admission, daughter noted slurred speech and altered mental status and patient was brought to the hospital. Pt AOX3 on arrival, speaking in full sentences and unlabored. during my visit, she did have some hesitation in her speech. I discussed with him results of noncontrast head CT which showed no acute changes. Not TPA candidate as out of window and minimal deficit of speech hesitation. MRI brain completed, discussed with ER, acute/subacute, L sided, parieto-occipital but also frontal. Advised CTA to eval for possibly inverntion, CTA negative of head. Discussed cclinical course with Ruthie barnard, yesterday in detail. Explain results of carotid Dopplers with 70% stenosis at bifurcation. Explain that likely need for vascular surgeon evaluation ordered by Dr. Gaffney, and in agreement with this. Patient has been put on low-dose aspirin for now, antiplatelet versus surgical management defer to vascular specialist. Patient with still limitation and speech, discussed with Soheila Cox yesterday who recommends [facility], no objection to this. Active Medications Aspirin (Asa -) 81 mg PO DAILY [facility] Last Admin: 05/21/20 09:28 Dose: 81 mg Documented by: Atorvastatin Calcium (Lipitor -) 40 mg PO HS [facility] Last Admin: 05/21/20 22:00 Dose: 40 mg Documented by: Heparin Sodium (Porcine) (Heparin -) 5,000 unit SQ BID [facility] Last Admin: 05/21/20 22:00 Dose: 5,000 unit Documented by: Vital Signs Period Temp Pulse Resp BP Sys/Marr Pulse Ox Last 24 Hr 98.0 F-98.4 F 70-82 18-20 139-156/47-83 97-97 Gen: Awake, alert, responds to questions appropriately Card: RRR, nml S1,S2 Resp: Normal symmetric effort, lungs clear to auscultation Abdomen: Soft, nontender, bowel sounds active Musculoskeletal: Adequate range of motion without significant deformity Head atraumatic and normocephalic CN: PERRL, EOMI intact, no apparent facial droop, no abnormalities in facial sensation, palate elevates, uvula and tongue midline, speech hesitation noted Motor: Strength intact grossly, limited participation and confrontation testing Sensory: Intact to Temperature, light touch, and pinprick in all extremities Reflexes: 2+ biceps, brachioradialis, patellar, achillies Coordination: Intact on [id number] testing CBCD WBC 6.7 K/mm3 (4.0-10.0) 05/22/20 06:00 RBC 4.34 M/mm3 (3.60-5.2) 05/22/20 06:00 Hgb 7.6 GM/dL (10.7-15.3) L 05/22/20 06:00 Hct 26.5 % (32.4-45.2) L 05/22/20 06:00 MCV 61.1 fl (80-96) L 05/22/20 06:00 MCHC 28.7 g/dl (32.0-36.0) L 05/22/20 06:00 RDW 24.4 % (11.6-15.6) H 05/22/20 06:00 Plt Count 221 K/MM3 (134-434) 05/22/20 06:00 MPV 8.4 fl (7.5-11.1) 05/22/20 06:00 CMP Sodium 141 mmol/L (136-145) 05/22/20 06:00 Potassium 3.9 mmol/L (3.5-5.1) 05/22/20 06:00 Chloride 109 mmol/L (98-107) H 05/22/20 06:00 Carbon Dioxide 23 mmol/L (21-32) 05/22/20 06:00 Anion Gap 8 MMOL/L (8-16) 05/22/20 06:00 BUN 23.8 mg/dL (7-18) H 05/22/20 06:00 Creatinine 0.6 mg/dL (0.55-1.3) 05/22/20 06:00 Calcium 8.9 mg/dL (8.5-10.1) 05/22/20 06:00 Total Bilirubin 0.5 mg/dL (0.2-1) 05/22/20 06:00 AST 18 U/L (15-37) 05/22/20 06:00 ALT 18 U/L (13-61) 07/01/20 06:00 Alkaline Phosphatase 143 U/L (45-117) H 05/22/20 06:00 Total Protein 7.0 g/dl (6.4-8.2) 05/22/20 06:00 Albumin 3.4 g/dl (3.4-5.0) 05/22/20 06:00 Plan: 59 yo female pmh HTN, HLD and DM presents to the ED for slurred speech and AMS. Daughter at the bedside stated pt complaining of R arm numbness yesterday night and approx 1 hour ago, daughter notes slurred speech and altered mental status and patient was brought to the hospital. Pt AOX3 on arrival, speaking in full sentences and unlabored. during my visit, she did have some hesitation in her speech. I discussed with him results of noncontrast head CT which showed no acute changes. Not TPA candidate as out of window and minimal deficit of speech hesitation. MRI brain completed, discussed with ER, acute/subacute, L sided, parieto-occipital but also frontal. Advised CTA to eval for possibly inverntion, CTA negative.CTA negative of head. Discussed cclinical course with daughter, Ruthie, yesterday in detail. Explain results of carotid Dopplers with 70% stenosis at bifurcation. Explain that likely need for vascular surgeon evaluation ordered by Dr. Gaffney, and in agreement with this. Patient has been put on low-dose aspirin for now, antiplatelet versus surgical management defer to vascular specialist. Patient with still limitation and speech, discussed with Soheila Cox yesterday who recommends [facility], no objection to this. LDL 147, increased statin to 40mg. Monitor blood pressure, maintain < 140/90 for now. Monitor ddiabetes, maintain euglycemic range, tight glycemic control.. PT/OT as tolerated. Speech therapy. DVT ppx.
[2020-05-22] MEDS: HEPARIN NA (PORCINE) 5,000 UNITS/ML 1ML VIAL SQ SCH (10:11)
[2020-05-22] MEDS: ASPIRIN 81 MG CHEWABLE TABLETS PO SCH (10:11)
--- NOTE | 2020-05-22 10:26 | PN ---
Progress Note, [employer] - Note Progress Note: Selected Entries 05/21/20 05/21/20 05/21/20 00:59 01:26 05:25 Breakfast Diet Tolerated Eating (Feeding Independent ) Ability Lunch Supper Temperature 98.3 F 99.2 F 97.7 F Blood Pressure 122/65 137/60 05/21/20 05/21/20 05/21/20 09:00 11:28 12:19 Breakfast 75% Diet Tolerated Well Eating (Feeding ) Ability Lunch 100% Supper Temperature 98.1 F Blood Pressure 148/64 05/21/20 05/21/20 05/21/20 14:05 17:00 18:51 Breakfast Diet Tolerated Well Eating (Feeding ) Ability Lunch Supper 100% Temperature 98.4 F 98.0 F Blood Pressure 151/59 L 156/83 05/21/20 05/22/20 05/22/20 21:00 01:00 09:00 Breakfast Diet Tolerated Eating (Feeding ) Ability Lunch Supper Temperature 98.3 F 98.1 F 98.0 F Blood Pressure 139/47 L 141/52 L 136/40 L Laboratory Tests 05/22/20 06:00 WBC 6.7 Impaired ability to write sentences due to Aphasia, expressive language deficits (Verbal, Writing) Pt will need intensive speech tx to return to premorbid level of function and work. Case reviewed with PT- ambulating well. Right hand weak, with difficulty writing motorically with dominant hand. Will benefit from OT as well. Suggest out pt Rehab- [facility]?
--- NOTE | 2020-05-22 11:17 | CONSULT ---
Consult - History of Present Illness History of Present Illness: 59 year old admitted with right arm weakness and aphasia. No prior history of stroke or TIA. She is right handed. Weakness has improved. Speech remains poor. COVID negative - History Source History Provided By: Medical Record - Past Medical History Cardio/Vascular: Yes: HTN, Hyperlipdemia ...: No Endocrine: Yes: Diabetes Mellitus - Alcohol/Substance Use Hx Alcohol Use: No - Smoking History Smoking history: Never smoked Have you smoked in the past 12 months: No Aproximately how many cigarettes per day: 20 Home Medications - Allergies Allergies/Adverse Reactions: Allergies Allergy/AdvReac Type Severity Reaction Status Date / Time No Known Allergies Allergy Verified 05/21/20 08:54 - Home Medications Home Medications: Ambulatory Orders Metoprolol Tartrate [Lopressor -] 12.5 mg PO BID 09/04/16 Azithromycin [Zithromax -] 250 mg PO DAILY #4 tablet 09/05/16 Azithromycin [Zithromax -] 250 mg PO DAILY 4 Days tablet 09/05/16 Fluticasone Prop 0.05% Nasal [Flonase -] 1 - 2 spray NS DAILY #1 spray.pump 09/05/16 Ibuprofen 600 mg PO QID PRN #20 tablet 11/25/18 Physical Exam Vital Signs: Vital Signs Temperature 98.0 F 05/22/20 09:00 Pulse Rate 72 05/22/20 09:00 Respiratory Rate 18 05/22/20 09:00 Blood Pressure 136/40 L 05/22/20 09:00 O2 Sat by Pulse Oximetry (%) 97 05/22/20 09:00 Constitutional: Yes: No Distress Eyes: Yes: WNL, EOM Intact HENT: Yes: WNL Neck: Yes: Supple Cardiovascular: Yes: Regular Rate and Rhythm Respiratory: Yes: Regular Extremities: Yes: WNL Edema: No Neurological: Yes: Alert, Aphasia, Cran Nerves II-XII Intact Labs: CBC, BMP 05/22/20 06:00 05/22/20 06:00 Imaging - Results Cat Scan: Image Reviewed (Left ICA stenosis) Ultrasound: Image Reviewed (Left ICA stenosis 70%) Problem List - Problems (1) Carotid stenosis, symptomatic, with infarction Assessment/Plan: Acute infarct left hemisphere with resulting aphasia and resolving arm weakness. Left ICA stenosis , severe. She will require carotid endarterectomy once she has reached maximal recovery from the recent stroke. Best medical therapy (aspirin, Plavix and statin) recommended. I will see her in my office after rehab complete. If new symptoms develop she will need surgery sooner. Problems reviewed: Yes Code(s): I63.239 - CEREB INFRC DUE TO UNSP OCCLS OR STENOS OF UNSP CRTD ARTERY
--- NOTE | 2020-05-22 11:46 | EKG ---
Test Reason : Blood Pressure : / mmHG Vent. Rate : 069 BPM Atrial Rate : 069 BPM P-R Int : 128 ms QRS Dur : 086 ms QT Int : 402 ms P-R-T Axes : 000 001 015 degrees QTc Int : 430 ms NORMAL SINUS RHYTHM NORMAL ECG WHEN COMPARED WITH ECG OF 20-MAY-2020 10:27, NO SIGNIFICANT CHANGE WAS FOUND Confirmed by Migue Chowdary MD ([id number]) on 05/22/2020 11:46:13 AM Referred By: Anna HOGAN Confirmed By:Migue Chowdary MD
--- NOTE | 2020-05-22 12:16 | PN ---
Progress Note, Physician History of Present Illness: Ms. Hoyt is a 59 yo female pmh HTN, diastolic CHF, HLD, anemia, and DM, who presents to the ED for slurred speech and AMS. Daughter at the bedside stated pt complaining of R arm numbness yesterday night and approx 1 hour ago, daughter notes slurred speech and altered mental status and patient was brought to the hospital. Pt AOX3 on arrival was speaking in full sentences, with some hesit ation in speech, per neurologist. noncontrast head CT showed no acute changes. Not TPA candidate as out of window and minimal deficit of speech hesitation. Strength, sensory, mental status were all within normal limits. Recommended ASA; MRI brain, lipid panel. - Current Medication List Current Medications: Active Medications Aspirin (Asa -) 81 mg PO DAILY [facility] Last Admin: 05/22/20 10:11 Dose: 81 mg Documented by: Atorvastatin Calcium (Lipitor -) 40 mg PO HS [facility] Last Admin: 05/21/20 22:00 Dose: 40 mg Documented by: Heparin Sodium (Porcine) (Heparin -) 5,000 unit SQ BID [facility] Last Admin: 05/22/20 10:11 Dose: 5,000 unit Documented by: - Objective Vital Signs: Vital Signs Temperature 98.0 F 05/22/20 09:00 Pulse Rate 72 05/22/20 09:00 Respiratory Rate 18 05/22/20 09:00 Blood Pressure 136/40 L 05/22/20 09:00 O2 Sat by Pulse Oximetry (%) 97 05/22/20 09:00 Eyes: Yes: WNL, Conjunctiva Clear, EOM Intact HENT: Yes: WNL, Atraumatic, Normocephalic Neck: Yes: WNL, Supple, Trachea Midline Cardiovascular: Yes: WNL, Regular Rate and Rhythm Respiratory: Yes: WNL, Regular, CTA Bilaterally Gastrointestinal: Yes: WNL, Normal Bowel Sounds Genitourinary: Yes: WNL Musculoskeletal: Yes: WNL Extremities: Yes: WNL Edema: No Integumentary: Yes: WNL ...Motor Strength: WNL Psychiatric: Yes: WNL Labs: CBC, BMP 05/22/20 06:00 05/22/20 06:00 INR, PTT INR 1.04 (0.83-1.09) 05/20/20 10:10 Assessment/Plan COVID not detected Acute/subacute cerebral infarcts HTN Hyperliidemia Diastolic CHF anemia long-term cigarette smoker Plan: MRI brain: multiple left-sided acute/subacute infarcts. Carotid US: moderate plaque with 70% to near-occlusion of bifurcation/bulb CCA; f/u CTA neck, vascular team. TNI < 0.02 x 2 EKG: normal sinus rhythm; normal study ECHO: normal LVEF; diastolic dysfunction; trace-mild MR; trace TR. elevated LDL cholesterol, low HDL; on atorvastatin.
[2020-05-22] MEDS: APIXABAN 5 MG TABLET PO SCH ×2 (13:42→21:54)
--- NOTE | 2020-05-22 16:02 | PN ---
Progress Note, Physician History of Present Illness: feeling good - Current Medication List Current Medications: Active Medications Apixaban (Eliquis -) 5 mg PO BID [facility] Last Admin: 05/22/20 13:42 Dose: 5 mg Documented by: Aspirin (Asa -) 81 mg PO DAILY [facility] Last Admin: 05/22/20 10:11 Dose: 81 mg Documented by: Atorvastatin Calcium (Lipitor -) 40 mg PO HS [facility] Last Admin: 05/21/20 22:00 Dose: 40 mg Documented by: - Objective Vital Signs: Vital Signs Temperature 98.5 F 05/22/20 12:45 Pulse Rate 73 05/22/20 12:45 Respiratory Rate 05/22/20 12:45 Blood Pressure 127/59 L 05/22/20 12:45 O2 Sat by Pulse Oximetry (%) 95 05/22/20 12:45 Constitutional: Yes: No Distress HENT: Yes: Atraumatic Neck: Yes: Supple Cardiovascular: Yes: Regular Rate and Rhythm Respiratory: Yes: CTA Bilaterally Gastrointestinal: Yes: Normal Bowel Sounds Extremities: Yes: WNL Edema: No Neurological: Yes: Alert, Oriented Labs: CBC, BMP 05/22/20 06:00 05/22/20 06:00 INR, PTT INR 1.04 (0.83-1.09) 05/20/20 10:10 Problem List - Problems (1) CVA (cerebral vascular accident) Assessment/Plan: doing well PT neuro not reviewed on lipitor/eliquis Code(s): I63.9 - CEREBRAL INFARCTION, UNSPECIFIED (2) Carotid stenosis Assessment/Plan: vascular consult noted Code(s): I65.29 - OCCLUSION AND STENOSIS OF UNSPECIFIED CAROTID ARTERY (3) HLD (hyperlipidemia) Code(s): E78.5 - HYPERLIPIDEMIA, UNSPECIFIED (4) Anemia Code(s): D64.9 - ANEMIA, UNSPECIFIED Assessment/Plan COVERING FOR DR GILLIAN PARRISH
[2020-05-22] MEDS: ATORVASTATIN CA 40 MG TABLET (FP) PO SCH (21:54)
[2020-05-23] MEDS ORDERED: ATORVASTATIN CA 80 MG TABLET (FP) PO SCH (06:55)
--- NOTE | 2020-05-23 08:34 | PN ---
Progress Note (short form) - Note Progress Note: CTA reviewed. Left ICA stenosis 70% possibly with ulceration and local thrombus. Eliquis started with Aspirin. Carotid endarterectomy to be scheduled when neuro status stablizes. Patient will follow up after Rehab complete. Problem List - Problems (1) Carotid stenosis, symptomatic, with infarction Code(s): I63.239 - CEREB INFRC DUE TO UNSP OCCLS OR STENOS OF UNSP CRTD ARTERY
[2020-05-23] MEDS: APIXABAN 5 MG TABLET PO SCH ×2 (09:08→22:18)
[2020-05-23] MEDS: ASPIRIN 81 MG CHEWABLE TABLETS PO SCH (09:08)
--- NOTE | 2020-05-23 09:13 | PN ---
Progress Note (short form) - Note Progress Note: Neurology History of Present Illness 59 yo female pmh HTN, HLD and DM presents to the ED for slurred speech and AMS. Daughter at the bedside stated pt complaining of R arm numbness yesterday night and approx 1 hour prior to admission, daughter noted slurred speech and altered mental status and patient was brought to the hospital. Pt AOX3 on arrival, speaking in full sentences and unlabored. during my visit, she did have some hesitation in her speech. I discussed with him results of noncontrast head CT which showed no acute changes. Not TPA candidate as out of window and minimal deficit of speech hesitation. MRI brain completed, discussed with ER, acute/subacute, L sided, parieto-occipital but also frontal. Advised CTA to eval for possibly inverntion, CTA negative of head. Discussed cclinical course with Ruthie barnard, previously in detail. Explained results of carotid Dopplers with 70% stenosis at bifurcation. Dr. Albrecht consulted, discussed case with him via phone yesterday. CTA neck with 70% L ICA stenosis and potential thrombus. Vascular rec'd elqiuis and maintaining ASA 81mg. PLan would be for intervention on future date after rehab. Active Medications Apixaban (Eliquis -) 5 mg PO BID [facility] Last Admin: 05/23/20 09:08 Dose: 5 mg Documented by: Aspirin (Asa -) 81 mg PO DAILY [facility] Last Admin: 05/23/20 09:08 Dose: 81 mg Documented by: Atorvastatin Calcium (Lipitor -) 80 mg PO [facility] Vital Signs Period Temp Pulse Resp BP Sys/Marr Pulse Ox Last 24 Hr 98.1 F-99.1 F 66-74 18-20 126-148/57-79 95-96 CBCD WBC 6.7 K/mm3 (4.0-10.0) 05/22/20 06:00 RBC 4.34 M/mm3 (3.60-5.2) 05/22/20 06:00 Hgb 7.6 GM/dL (10.7-15.3) L 05/22/20 06:00 Hct 26.5 % (32.4-45.2) L 05/22/20 06:00 MCV 61.1 fl (80-96) L 05/22/20 06:00 MCHC 28.7 g/dl (32.0-36.0) L 05/22/20 06:00 RDW 24.4 % (11.6-15.6) H 05/22/20 06:00 Plt Count 221 K/MM3 (134-434) 05/22/20 06:00 MPV 8.4 fl (7.5-11.1) 05/22/20 06:00 CMP Sodium 141 mmol/L (136-145) 05/22/20 06:00 Potassium 3.9 mmol/L (3.5-5.1) 05/22/20 06:00 Chloride 109 mmol/L (98-107) H 05/22/20 06:00 Carbon Dioxide 23 mmol/L (21-32) 05/22/20 06:00 Anion Gap 8 MMOL/L (8-16) 05/22/20 06:00 BUN 23.8 mg/dL (7-18) H 05/22/20 06:00 Creatinine 0.6 mg/dL (0.55-1.3) 05/22/20 06:00 Calcium 8.9 mg/dL (8.5-10.1) 05/22/20 06:00 Total Bilirubin 0.5 mg/dL (0.2-1) 05/22/20 06:00 AST 18 U/L (15-37) 05/22/20 06:00 ALT 18 U/L (13-61) 05/22/20 06:00 Alkaline Phosphatase 143 U/L (45-117) H 05/22/20 06:00 Total Protein 7.0 g/dl (6.4-8.2) 05/22/20 06:00 Albumin 3.4 g/dl (3.4-5.0) 05/22/20 06:00 Plan: 59 yo female pmh HTN, HLD and DM presents to the ED for slurred speech and AMS. Daughter at the bedside stated pt complaining of R arm numbness yesterday night and approx 1 hour ago, daughter notes slurred speech and altered mental status and patient was brought to the hospital. Pt AOX3 on arrival, speaking in full sentences and unlabored. during my visit, she did have some hesitation in her speech. I discussed with him results of noncontrast head CT which showed no acute changes. Not TPA candidate as out of window and minimal deficit of speech hesitation. MRI brain completed, discussed with ER, acute/subacute, L sided, parieto-occipital but also frontal. Advised CTA to eval for possibly inverntion, CTA negative.CTA negative of head. Dr. Albrecht consulted, discussed case with him via phone yesterday. CTA neck with 70% L ICA stenosis and potential thrombus. Vascular rec'd elqiuis and maintaining ASA 81mg. PLan would be for intervention on future date after rehab. Patient with still limitation and speech, discussed with Soheila Cox previously who recommends [facility], no objection to this. LDL 147, increased statin to 40mg. Monitor blood pressure, maintain < 140/90 for now. Monitor ddiabetes, maintain euglycemic range, tight glycemic control.. PT/OT as tolerated. Speech therapy. DVT ppx.
--- NOTE | 2020-05-23 10:49 | PN ---
Progress Note, HOSPITAL MORTICIAN - Note Progress Note: Documented as "minimal Aphasia" which is not accurate. Cognitively good. Expressive language improving on sentence level,slow to respond but improving, longer sentences, less delay in word finding, but still unable to formulate more than a sentence at a time. Able to slowly read aloud. Unable to write on sentence level with grammatic errors and simple construction. Pt needs intensive speech tx upon d/c to improve to premorbid level and return to work. Homecare followed by Out pt if insurance will allow.
--- NOTE | 2020-05-23 11:02 | PN ---
Progress Note, Physician Chief Complaint: Pt A&Ox3; sitting up in bed; feels better, but still has right arm weakness, hesitation in speech, oral deviation. Denies anxiety/depression History of Present Illness: Ms. Hoyt is a 59 yo female with pmh HTN, diastolic CHF, HLD, anemia, and DM, who presents to the ED for slurred speech and AMS. Daughter at the bedside stated pt complaining of R arm numbness yesterday night and approx 1 hour ago, with slurred speech and altered mental status. Pt AOX3 on arrival was speaking in full sentences, with some hesitation in speech, per neurologist. Noncontrast head CT showed no acute changes. Not TPA candidate, as out of window and minimal deficit of speech hesitation. Strength, sensory, mental status were all within normal limits. Dr. Branham, neurologist, recommended ASA; MRI brain, lipid panel. - Current Medication List Current Medications: Active Medications Apixaban (Eliquis -) 5 mg PO BID [facility] Last Admin: 05/23/20 09:08 Dose: 5 mg Documented by: Aspirin (Asa -) 81 mg PO DAILY [facility] Last Admin: 05/23/20 09:08 Dose: 81 mg Documented by: Atorvastatin Calcium (Lipitor -) 80 mg PO HS [facility] - Objective Vital Signs: Vital Signs Temperature 99.0 F 05/23/20 06:00 Pulse Rate 66 05/23/20 06:00 Respiratory Rate 18 05/23/20 06:00 Blood Pressure 126/59 L 05/23/20 06:00 O2 Sat by Pulse Oximetry (%) 96 05/22/20 21:00 Constitutional: Yes: Calm Eyes: Yes: WNL HENT: Yes: WNL Neck: Yes: WNL Cardiovascular: Yes: S1, S2 Respiratory: Yes: Regular Gastrointestinal: Yes: Soft. No: Tenderness ...Rectal Exam: Yes: Deferred Genitourinary: No: Anuria Breast(s): Yes: WNL Musculoskeletal: Yes: Muscle Weakness, Other (right arm modderate weakness) Extremities: Yes: Cool Edema: No Integumentary: Yes: WNL Neurological: Yes: Alert, Oriented, Facial Droop, Weakness Psychiatric: Yes: Alert, Oriented Labs: CBC, BMP 05/22/20 06:00 05/22/20 06:00 INR, PTT INR 1.04 (0.83-1.09) 05/20/20 10:10 Abnormal Lab Results 05/20/20 18:00 Crossmatch See Detail - ....Imaging Chest X-ray: Image Reviewed EKG: Image Reviewed Problem List - Problems (1) Diabetes Code(s): E11.9 - TYPE 2 DIABETES MELLITUS WITHOUT COMPLICATIONS (2) Anemia Code(s): D64.9 - ANEMIA, UNSPECIFIED (3) CVA (cerebral vascular accident) Code(s): I63.9 - CEREBRAL INFARCTION, UNSPECIFIED (4) Carotid stenosis Code(s): I65.29 - OCCLUSION AND STENOSIS OF UNSPECIFIED CAROTID ARTERY (5) HLD (hyperlipidemia) Code(s): E78.5 - HYPERLIPIDEMIA, UNSPECIFIED Assessment/Plan COVID not detected Acute/subacute cerebral infarcts (Father had CVA at 56 yo; was a smoker). HTN DM Hyperlipidemia Diastolic CHF anemia long-term cigarette smoker Plan: MRI brain: multiple left-sided acute/subacute infarcts. Carotid US: moderate plaque with 70% to near-occlusion of bifurcation/bulb CCA; f/u CTA neck, vascular team (Dr. Albrecht's consult noted). TNI < 0.02 x 2 EKG: normal sinus rhythm; normal study ECHO: normal LVEF; diastolic dysfunction; trace-mild MR; trace TR. Telemetry: NSR; no arrhythmias. elevated LDL cholesterol, low HDL; on atorvastatin (start high-dose). Help with cigarette cessation: pt now agrees to nicotine patch; smokes 1/2-1 ppd. Antiplatelet therapy per neurologist. Consider long-term monitoring as outpatient to r/o PAF. Plan on coronary artery evaluation when stable (can be done as outpatient).
--- NOTE | 2020-05-23 11:02 | CON.HO ---
Consult Consult Specialty:: Hematology - History of Present Illness Chief Complaint: Anemia History of Present Illness: 59 year old admitted with right arm weakness and aphasia. No prior history of stroke or TIA. Symptoms lamost resolved adn she appears to be speaking normally Speech Pathology says: "Expressive language improving on sentence level,slow to respond but improving, longer sentences, less delay in word finding .... ". She smokes 20 cigs per day for many decades.Denies alcohol. Denies FH of anemia or ever being told that she has anemia, denies rectal or vaginal bleeding. Hb was 7 on admission, now 7.6. FOBT x q negative. 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 Cardio/Vascular: Yes: HTN, Hyperlipdemia Pulmonary: No: Asthma ...: No Endocrine: Yes: Diabetes Mellitus - Alcohol/Substance Use Hx Alcohol Use: No - Smoking History Smoking history: Current every day smoker Have you smoked in the past 12 months: Yes Aproximately how many cigarettes per day: 20 Home Medications - Allergies Allergies/Adverse Reactions: Allergies Allergy/AdvReac Type Severity Reaction Status Date / Time No Known Allergies Allergy Verified 05/21/20 08:54 - Home Medications Home Medications: Ambulatory Orders Metoprolol Tartrate [Lopressor -] 12.5 mg PO BID 09/04/16 Azithromycin [Zithromax -] 250 mg PO DAILY #4 tablet 09/05/16 Azithromycin [Zithromax -] 250 mg PO DAILY 4 Days tablet 09/05/16 Fluticasone Prop 0.05% Nasal [Flonase -] 1 - 2 spray NS DAILY #1 spray.pump 09/05/16 Ibuprofen 600 mg PO QID PRN #20 tablet 11/25/18 Physical Exam Vital Signs: Vital Signs Temperature 99.0 F 05/23/20 06:00 Pulse Rate 66 05/23/20 06:00 Respiratory Rate 18 05/23/20 06:00 Blood Pressure 126/59 L 05/23/20 06:00 O2 Sat by Pulse Oximetry (%) 96 05/22/20 21:00 Respiratory: Yes: Other (No hepatospelniomegaly) Gastrointestinal: Yes: Other (No palpable spleen) Assessment/Plan Microcytic hypochromic anemia. Indices raise tonny possibiity of thalssemia minor or otehr hemiglobinapoty as well as iron deficeince. Many studies sent - wait for results. She si asymptomatic from anemia.
[2020-05-23 11:06] LABS: BASO % 0.6 % (0-2.0); EOS % 1.5 % (0-4.5); HEMATOCRIT 27.9 % (32.4-45.2); HEMOGLOBIN 7.9 GM/dL (10.7-15.3); LYMPH % 31.1 % (8-40); MCHC 28.5 g/dl (32.0-36.0); MEAN CELL VOLUME 62.4 fl (80-96); MEAN PLT VOLUME 8.7 fl (7.5-11.1); NEUT % 58.8 % (42.8-82.8); PLATELET COUNT 252 K/MM3 (134-434); RBC 4.47 M/mm3 (3.60-5.2); RDW 24.7 % (11.6-15.6); WHITE BLOOD COUNT 6.3 K/mm3 (4.0-10.0)
[2020-05-23 11:08] LABS: MCH 17.8 pg (25.7-33.7)
[2020-05-23 11:29] LABS: IRON SERUM 16 ug/dL (50-175); TOTAL IRON BINDING CAPACITY 524 ug/dL (250-450)
[2020-05-23 11:30] LABS: LDH 208 U/L (84-246)
[2020-05-23 11:35] LABS: ALBUMIN 3.5 g/dl (3.4-5.0); BILIRUBIN,TOTAL 0.5 mg/dL (0.2-1); BLOOD UREA NITROGEN 22.2 mg/dL (7-18); CALCIUM 8.8 mg/dL (8.5-10.1); CREATININE 0.7 mg/dL (0.55-1.3); POTASSIUM 4.3 mmol/L (3.5-5.1); TOT PROT 7.2 g/dl (6.4-8.2)
[2020-05-23] MEDS: NICOTINE 21 MG/24 HOURS TOPICAL PATCH TD SCH (12:20)
--- NOTE | 2020-05-23 22:08 | PN ---
Progress Note, Physician History of Present Illness: No new complaints - Current Medication List Current Medications: Active Medications Apixaban (Eliquis -) 5 mg PO BID [facility] Last Admin: 05/23/20 09:08 Dose: 5 mg Documented by: Aspirin (Asa -) 81 mg PO DAILY [facility] Last Admin: 05/23/20 09:08 Dose: 81 mg Documented by: Atorvastatin Calcium (Lipitor -) 80 mg PO [facility] Nicotine (Nicoderm Patch -) 21 mg TD DAILY [facility] Last Admin: 05/23/20 12:20 Dose: 21 mg Documented by: - Objective Vital Signs: Vital Signs Temperature 98.5 F 05/23/20 18:00 Pulse Rate 72 05/23/20 18:00 Respiratory Rate 18 05/23/20 18:00 Blood Pressure 133/58 L 05/23/20 18:00 O2 Sat by Pulse Oximetry (%) 96 05/23/20 10:00 Neck: Yes: WNL, Supple Cardiovascular: Yes: WNL, Regular Rate and Rhythm Respiratory: Yes: WNL, Regular, CTA Bilaterally Gastrointestinal: Yes: WNL, Normal Bowel Sounds, Soft Labs: CBC, BMP 05/23/20 10:07 05/23/20 10:07 INR, PTT INR 1.04 (0.83-1.09) 05/20/20 10:10 Problem List - Problems (1) CVA (cerebral vascular accident) Assessment/Plan: CTA head was unremarkable MRI brain showed multiple infarcts Lt parietal/frontal areas Cont asa/lipitor Cont eliquis Echo unremarkable Carotid doppler: 70% occulsion bifurcation/bulb CTA neck intraluminal thrombus Vascular surgery/neuro consults noted DC planning to [facility] Code(s): I63.9 - CEREBRAL INFARCTION, UNSPECIFIED (2) HLD (hyperlipidemia) Assessment/Plan: Cont lipitor Code(s): E78.5 - HYPERLIPIDEMIA, UNSPECIFIED (3) Carotid stenosis Assessment/Plan: carotid doppler shows 70% occulsion bifurcation/bulb Check CTA neck Vasc consult Code(s): I65.29 - OCCLUSION AND STENOSIS OF UNSPECIFIED CAROTID ARTERY (4) Anemia Assessment/Plan: Cont to follow H/H Heme consult noted Code(s): D64.9 - ANEMIA, UNSPECIFIED
[2020-05-24] MEDS: APIXABAN 5 MG TABLET PO SCH (09:19)
[2020-05-24] MEDS: NICOTINE 21 MG/24 HOURS TOPICAL PATCH TD SCH (09:19)
[2020-05-24] MEDS: ASPIRIN 81 MG CHEWABLE TABLETS PO SCH (09:19)
[2020-05-24 10:46] VITALS: BP 156/48; PULSE 69; TEMP 97.9
--- NOTE | 2020-05-24 11:04 | PN ---
Progress Note, [employer] - Note Progress Note: Selected Entries 05/23/20 05/23/20 05/23/20 01:22 06:00 10:00 Diet Tolerated Lunch Supper Temperature 98.4 F 99.0 F 98.9 F Blood Pressure 127/57 L 126/59 L 141/62 05/23/20 05/23/20 05/23/20 14:14 18:00 22:00 Diet Tolerated Fair Lunch 25% Supper 50% Temperature 98.1 F 98.5 F 98.0 F Blood Pressure 135/57 L 133/58 L 146/67 05/24/20 05/24/20 05/24/20 02:00 06:00 10:00 Diet Tolerated Lunch Supper Temperature 98.0 F 97.9 F Blood Pressure 139/57 L 121/59 L 156/48 L Laboratory Tests 05/23/20 10:07 WBC 6.3 Cognitively good. Expressive language improving on sentence level,slow to respond but improving, longer sentences, less delay in word finding, but still unable to formulate more than a sentence at a time. Able to slowly read aloud. Unable to write on sentence level with grammatic errors and simple construction. Pt needs intensive speech tx upon d/c to improve to premorbid level and return to work. Homecare followed by Out pt if insurance will allow.
--- NOTE | 2020-05-24 11:41 | PN ---
Progress Note (short form) - Note Progress Note: Neurology History of Present Illness 59 yo female pmh HTN, HLD and DM presents to the ED for slurred speech and AMS. Daughter at the bedside stated pt complaining of R arm numbness yesterday night and approx 1 hour prior to admission, daughter noted slurred speech and altered mental status and patient was brought to the hospital. Pt AOX3 on arrival, speaking in full sentences and unlabored. during my visit, she did have some hesitation in her speech. I discussed with him results of noncontrast head CT which showed no acute changes. Not TPA candidate as out of window and minimal deficit of speech hesitation. MRI brain completed, discussed with ER, acute/subacute, L sided, parieto-occipital but also frontal. Advised CTA to eval for possibly inverntion, CTA negative of head. Discussed cclinical course with Ruthie barnard, previously in detail. Explained results of carotid Dopplers with 70% stenosis at bifurcation. Dr. Albrecht consulted, discussed case with him via phone. CTA neck with 70% L ICA stenosis and potential thrombus. Vascular rec'd elqiuis and maintaining ASA 81mg. PLan would be for intervention on future date after rehab. Patient's speech today seemed improved and she feels some alejandra bjective weakness in her right arm, dispo pending, may benefit from short-term rehabilitation. Advised outpatient follow up. Active Medications Apixaban (Eliquis -) 5 mg PO BID [facility] Last Admin: 05/24/20 09:19 Dose: 5 mg Documented by: Aspirin (Asa -) 81 mg PO DAILY [facility] Last Admin: 05/24/20 09:19 Dose: 81 mg Documented by: Atorvastatin Calcium (Lipitor -) 80 mg PO HS [facility] Last Admin: 05/23/20 22:17 Dose: 80 mg Documented by: Nicotine (Nicoderm Patch -) 21 mg TD DAILY [facility] Last Admin: 05/24/20 09:19 Dose: 21 mg Documented by: Vital Signs Period Temp Pulse Resp BP Sys/Marr Pulse Ox Last 24 Hr 97.9 F-98.5 F 65-79 18-20 121-156/48-67 95-96 Gen: Awake, alert, responds to questions appropriately Card: RRR, nml S1,S2 Resp: Normal symmetric effort, lungs clear to auscultation Abdomen: Soft, nontender, bowel sounds active Musculoskeletal: Adequate range of motion without significant deformity Head atraumatic and normocephalic CN: PERRL, EOMI intact, no apparent facial droop, no abnormalities in facial sensation, palate elevates, uvula and tongue midline, speech hesitation noted Motor: Strength intact grossly, limited participation and confrontation testing Sensory: Intact to Temperature, light touch, and pinprick in all extremities Reflexes: 2+ biceps, brachioradialis, patellar, achillies Coordination: Intact on [id number] testing CBCD WBC 6.3 K/mm3 (4.0-10.0) 05/23/20 10:07 RBC 4.47 M/mm3 (3.60-5.2) 05/23/20 10:07 Hgb 7.9 GM/dL (10.7-15.3) L 05/23/20 10:07 Hct 27.9 % (32.4-45.2) L 05/23/20 10:07 MCV 62.4 fl (80-96) L 05/23/20 10:07 MCHC 28.5 g/dl (32.0-36.0) L 05/23/20 10:07 RDW 24.7 % (11.6-15.6) H 05/23/20 10:07 Plt Count 252 K/MM3 (134-434) 05/23/20 10:07 MPV 8.7 fl (7.5-11.1) 05/23/20 10:07 CMP Sodium 139 mmol/L (136-145) 05/23/20 10:07 Potassium 4.3 mmol/L (3.5-5.1) 05/23/20 10:07 Chloride 106 mmol/L (98-107) 05/23/20 10:07 Carbon Dioxide 29 mmol/L (21-32) 05/23/20 10:07 Anion Gap 4 MMOL/L (8-16) L 05/23/20 10:07 BUN 22.2 mg/dL (7-18) H 05/23/20 10:07 Creatinine 0.7 mg/dL (0.55-1.3) 05/23/20 10:07 Calcium 8.8 mg/dL (8.5-10.1) 05/23/20 10:07 Total Bilirubin 0.5 mg/dL (0.2-1) 05/23/20 10:07 AST 19 U/L (15-37) 05/23/20 10:07 ALT 20 U/L (13-61) 05/23/20 10:07 Alkaline Phosphatase 141 U/L (45-117) H 05/23/20 10:07 Total Protein 7.2 g/dl (6.4-8.2) 05/23/20 10:07 Albumin 3.5 g/dl (3.4-5.0) 05/23/20 10:07 Plan: 59 yo female pmh HTN, HLD and DM presents to the ED for slurred speech and AMS. Daughter at the bedside stated pt complaining of R arm numbness yesterday night and approx 1 hour ago, daughter notes slurred speech and altered mental status and patient was brought to the hospital. Pt AOX3 on arrival, speaking in full sentences and unlabored. during my visit, she did have some hesitation in her speech. I discussed with him results of noncontrast head CT which showed no acute changes. Not TPA candidate as out of window and minimal deficit of speech hesitation. MRI brain completed, discussed with ER, acute/subacute, L sided, parieto-occipital but also frontal. Advised CTA to eval for possibly inverntion, CTA negative.CTA negative of head. Dr. Albrecht consulted, discussed case with him via phone yesterday. CTA neck with 70% L ICA stenosis and potential thrombus. Vascular rec'd elqiuis and maintaining ASA 81mg. PLan would be for intervention on future date after rehab. Patient with still limitation and speech, discussed with Soheila Cox previously who recommends [facility], no objection to this. LDL 147, increased statin to 40mg. Monitor blood pressure, maintain < 140/90 for now. Monitor ddiabetes, maintain euglycemic range, tight glycemic control.. PT/OT as tolerated. Speech therapy. DVT ppx. Short term rehab if accepted, outpatient follow up therafter
--- NOTE | 2020-05-24 12:42 | DS ---
Physical Examination Vital Signs: Vital Signs Temperature 97.9 F 05/24/20 10:00 Pulse Rate 69 05/24/20 10:00 Respiratory Rate 20 05/24/20 10:00 Blood Pressure 156/48 L 05/24/20 10:00 O2 Sat by Pulse Oximetry (%) 95 05/24/20 09:35 Labs: CBC, BMP 05/23/20 10:07 05/23/20 10:07 Discharge Summary Problems reviewed: Yes Reason For Visit: CVA Current Active Problems Anemia (Acute) CVA (cerebral vascular accident) (Acute) Carotid stenosis (Acute) Carotid stenosis, symptomatic, with infarction (Acute) Diabetes (Acute) HLD (hyperlipidemia) (Acute) Stroke (Acute) Hospital Course: Pt is a 59 y/o female who is a poor historian and has a PMH significant for HTN, HLD and DM Pt presented to the ER slurred speech and AMS. MRI brain/ct scan head showed lt frontal/parietal infarcts. On admission pt was outside of window for thrombolytics. Pt was followed by cardio/neuro/vascular surgery. Pt had echo wc was unremarkable and carotid doppler wc showed 70% stenosis and TCA neck was done wc showed ?intraluminal thrombosis and pt was started on eliquis. pt is now ready for dc and will need outpt physical/occupational therapy and VNS. Condition: Good - Instructions Diet, Activity, Other Instructions: 2 gram sodium diet See Vascular surgeon once discharged from rehab Dr Bon Avila Disposition: VNS/HOME HEALTH CARE - Home Medications Comprehensive Discharge Medication List: Ambulatory Orders Metoprolol Tartrate [Lopressor -] 12.5 mg PO BID 09/04/16 Apixaban [Eliquis -] 5 mg PO BID tablet 05/24/20 Apixaban [Eliquis] 5 mg PO BID #60 tablet 05/24/20 Aspirin Coated [Ecotrin -] 81 mg PO DAILY #30 tablet.ec 05/24/20 Aspirin [ASA -] 81 mg PO DAILY tab.chew 05/24/20 Atorvastatin Ca [Lipitor] 80 mg PO HS tablet 05/24/20 Atorvastatin Ca [Lipitor] 80 mg PO HS #30 tab 05/24/20 Metoprolol Tartrate 25 mg PO BID #60 tablet 05/24/20
--- NOTE | 2020-05-24 14:22 | PN ---
Progress Note, Physician Chief Complaint: Events noted Coverage for Dr. Giuliano Gannon Not in distress History of Present Illness: Patient was seen and examined. Awake and alert. Chart was reviewed Denies chest pain, SOB or palpitations - Current Medication List Current Medications: Active Medications Apixaban (Eliquis -) 5 mg PO BID [facility] Last Admin: 05/24/20 09:19 Dose: 5 mg Documented by: Aspirin (Asa -) 81 mg PO DAILY [facility] Last Admin: 05/24/20 09:19 Dose: 81 mg Documented by: Atorvastatin Calcium (Lipitor -) 80 mg PO HS [facility] Last Admin: 05/23/20 22:17 Dose: 80 mg Documented by: Nicotine (Nicoderm Patch -) 21 mg TD DAILY [facility] Last Admin: 05/24/20 09:19 Dose: 21 mg Documented by: - Objective Vital Signs: Vital Signs Temperature 97.9 F 05/24/20 10:00 Pulse Rate 69 05/24/20 10:00 Respiratory Rate 20 05/24/20 10:00 Blood Pressure 156/48 L 05/24/20 10:00 O2 Sat by Pulse Oximetry (%) 95 05/24/20 09:35 Neck: Yes: Supple Cardiovascular: Yes: Regular Rate and Rhythm, S1, S2. No: Gallop Respiratory: Yes: CTA Bilaterally Gastrointestinal: Yes: Normal Bowel Sounds, Soft. No: Tenderness Edema: No Additional Findings/Remarks: - Review of Systems Constitutional: denies: Chills, Fever Cardiovascular: denies: Chest Pain, Shortness of Breath. denies: Palpitations Respiratory: denies: SOB. denies: Hemoptysis, Orthopnea, PND Gastrointestinal: denies: Abdominal Pain, Constipation, Diarrhea, Melena, Nausea, Rectal Bleeding, Vomiting Genitourinary: denies: Dysuria, Hematuria Musculoskeletal: denies: Back Pain, Joint Pain Neurological: denies Weakness. denies: Dizziness, Headache, Seizure, Syncope Labs: CBC, BMP 05/23/20 10:07 05/23/20 10:07 Problem List - Problems (1) HTN (hypertension) Code(s): I10 - ESSENTIAL (PRIMARY) HYPERTENSION (2) CVA (cerebral vascular accident) Code(s): I63.9 - CEREBRAL INFARCTION, UNSPECIFIED (3) Carotid stenosis Code(s): I65.29 - OCCLUSION AND STENOSIS OF UNSPECIFIED CAROTID ARTERY (4) Diabetes Code(s): E11.9 - TYPE 2 DIABETES MELLITUS WITHOUT COMPLICATIONS (5) HLD (hyperlipidemia) Code(s): E78.5 - HYPERLIPIDEMIA, UNSPECIFIED Assessment/Plan 1. Acute/subacute cerebral infarct, multiple area with left ICA stenosis and intraluminal thrombus 2. HTN 3. DM 4. Hypercholesterolemia 5. Diastolic dysfunction 6. Anemia PLAN: 1. Vascular input noted. Currently has been recommended Eliquis 5 mg BID and ASA [address] Albrecht. Await carotid endarterectomy per Vascular surgery 2. No absolute contraindication for above surgery in view of absence of ischemic symptoms, decompensated congestive heart failure or malignant arrhythmia. 3. Consider beta blanco therapy with Metoprolol Succinate 25 mg QD if not contraindicated 4. Continue Atorvastatin 5. Consider further extended cardiac monitoring to rule out atrial fibrillation. Can be done as outpatient 6. Further work up including LEI + bubble study to rule out PFO, but can be done as outpatient. Further cardiac work up as outpatient Follow up with Dr. Gannon upon discharge. Follow up with Dr. Trena Braxton MD
[2020-06-05 17:08] LABS: HGB SOLUBILITY Negative (Negative); Hgb C 0 % (0.0); Hgb F 0 % (0.0-2.0); Hgb S 0 % (0.0)
== END 2020-05-24 14:32 | disposition home health service (06) | DRG 65 ==
LOC: JER 09:50 → JERBED 10:59 → J4W 05-21 01:18
PROVIDERS: ADMIT Internal Medicine; ATTEND Internal Medicine
PROC: 30233N1 Transfusion of Nonautologous Red Blood Cells into Peripheral Vein, Percutaneous Approach (ICD-10-PCS; principal; 2020-05-20)
DX: I63.9 Cerebral infarction, unspecified (principal); G81.91 Hemiplegia, unspecified affecting right dominant side; I50.30 Unspecified diastolic (congestive) heart failure; R41.82 Altered mental status, unspecified; I11.0 Hypertensive heart disease with heart failure; I65.29 Occlusion and stenosis of unspecified carotid artery; E11.9 Type 2 diabetes mellitus without complications; E78.5 Hyperlipidemia, unspecified; R47.81 Slurred speech; F17.210 Nicotine dependence, cigarettes, uncomplicated; D50.9 Iron deficiency anemia, unspecified; R29.701 NIHSS score 1; R47.01 Aphasia
CPT/HCPCS: 36415; 36430; 36511; 70450-TC; 70496-TC; 70498-TC; 70551-TC; 80053; 80061; 81003; 82272; 82550; 82607; 82746; 82747; 82962; 83010; 83021; 83540; 83550; 83615; 83721; 84443; 84484; 85014; 85025; 85027; 85610; 85660; 85730; 86850; 86900; 86901; 86922; 93005; 93010; 93306-TC; 93880-TC; 97116-GP; 97161-GP; 99291; J1644; P9038; P9058; Q9967; U0003

== ENCOUNTER 2020-07-09 12:14 | Inpatient (IN) | payer OTHER ==
--- NOTE | 2020-07-09 13:00 | PDOC ---
History of Present Illness - General Chief Complaint: Abnormal Lab Results (Outside) Stated Complaint: SENT BY PCP Time Seen by Provider: 07/09/20 12:26 - History of Present Illness Initial Comments: 07/09/20 12:55 60 yo f presents to ED for HTN, HLD, DM, CVA with residual right hand numbness presents to ED for low hemoglobin and blood transfusion. Pt explains she is scheduled to have carotid endarectomy and had preop labs yesterday. Pt explains she was called by her PCP Dr. Rohan Dangelo who stated she wanted her to come in a nd get a blood transfusion. Pt denies any current symptoms. Pt denies blurry vision, lightheadedness, chest pain, SOB, bloody or dark bowel movements, blood in urination. PMH: DM, HTN, HLD, CVA PSH: denies Meds: Losartan, atorvastatin, metroprolol, aspirin, eliquis Allergies denies PCP: Dr. Rohan Landry Vascular: Dr. Jenkins Past History - Medical History Allergies/Adverse Reactions: Allergies Allergy/AdvReac Type Severity Reaction Status Date / Time No Known Allergies Allergy Verified 07/10/20 08:53 Home Medications: Ambulatory Orders Apixaban [Eliquis -] 5 mg PO BID tablet 05/24/20 Aspirin Coated [Ecotrin -] 81 mg PO DAILY #30 tablet.ec 05/24/20 Atorvastatin Ca [Lipitor] 80 mg PO HS tablet 05/24/20 Metoprolol Tartrate 25 mg PO BID #60 tablet 05/24/20 Dapagliflozin Propanediol [Farxiga] 10 mg PO DAILY 07/09/20 Losartan Potassium 25 mg PO DAILY 07/09/20 CVA: Yes COPD: No Diabetes: Yes HTN: Yes Hypercholesterolemia: Yes - Immunization History Immunization Up to Date: Yes - Psycho-Social/Smoking History Smoking History: Former smoker Have you smoked in the past 12 months: Yes Number of Cigarettes Smoked Daily: 10 Information on smoking cessation initiated: No 'Breaking Loose' booklet given: 06/18/14 - Substance Abuse Hx (Audit-C & DAST Scrn) How often the patient has a drink containing alcohol: Never Score: In Men: 4 or > Positive; In Women: 3 or > Positive: 0 Screen Result (Pos requires Nsg. Audit-10AR): Negative In the last yr the pt used illegal drug/Rx for NonMed reason: No Score: Yes response is considered Positive: 0 Screen Result (Positive result requires Nsg. DAST-10): Negative Review of Systems - Review of Systems Comments:: 07/09/20 12:58 GENERAL/CONSTITUTIONAL: No fever or chills. No weakness. HEAD, EYES, EARS, NOSE AND THROAT: No change in vision. No ear pain or discharge. No sore throat. CARDIOVASCULAR: No chest pain or shortness of breath RESPIRATORY: No cough, wheezing, or hemoptysis. GASTROINTESTINAL: No nausea, vomiting, diarrhea or constipation. GENITOURINARY: No dysuria, frequency, or change in urination. MUSCULOSKELETAL: No joint or muscle swelling or pain. No neck or back pain. SKIN: No rash NEUROLOGIC: No headache, vertigo, loss of consciousness, or change in strength/sensation. ENDOCRINE: No increased thirst. No abnormal weight change HEMATOLOGIC/LYMPHATIC: Anemia ALLERGIC/IMMUNOLOGIC: No hives or skin allergy. *Physical Exam - Vital Signs Last Vital Signs Temp Pulse Resp BP Pulse Ox 97.6 F 62 18 124/59 L 100 07/09/20 12:17 07/09/20 12:17 07/09/20 12:17 07/09/20 12:17 07/09/20 12:17 - Physical Exam 07/09/20 12:59 GENERAL: Awake, alert, and fully oriented, in no acute distress HEAD: No signs of trauma, normocephalic, atraumatic EYES: EOMI, sclera anicteric, slightly pale conjuctiva ENT: Auricles normal inspection, hearing grossly normal, nares patent, oropharynx clear without exudates. Moist mucosa NECK: Normal ROM, supple, no lymphadenopathy, JVD, or masses LUNGS: No distress, speaks full sentences, clear to auscultation bilaterally HEART: Regular rate and rhythm, normal S1 and S2, no murmurs, rubs or gallops, peripheral pulses normal and equal bilaterally. ABDOMEN: Soft, nontender, normoactive bowel sounds. No guarding, no rebound. No masses EXTREMITIES : Normal inspection, Normal range of motion, no edema. No clubbing or cyanosis. NEUROLOGICAL: Cranial nerves II through XII grossly intact. Normal speech, normal gait, SKIN: Warm, Dry, normal turgor, no rashes or lesions noted Rectal: No gross blood noted on exam. NO hemorrhoids noted on exam. Chaperoned by Nurse Vilma. 07/09/20 15:05 Heart Score/ECG Review - ECG Impressions Comment:: 07/09/20 15:08 Sinus bradycardia at 59bpm Normal AR QRS and QT interval T Wave inversion in lead III and aVF (New t wave inversion in aVF) ED Treatment Course - LABORATORY CBC & Chemistry Diagram: 07/10/20 06:12 07/09/20 13:48 Medical Decision Making - Medical Decision Making 07/09/20 13:00 60 yo female with pmh of DM, HTN, HLD, CVA presents to ED for blood transfusion. Will get CBC to check blood level, coags to check for coagulopathy, cmp to check for arrythmia, type and screen to check which blood to give, ekg and cardiac enzyme to monitor demand ischemia, and UA and stool occult blood to see if any bleeding in urine or rectum. Called Dr. Rohan Landry waiting for call back. 07/09/20 13:43 Dr. Rohan Landry called back explaining hgb was around 7 and hct 24 and wanted pt further evaluated at the ED. Pt also has carotid stenosis so believes pt may stroke out with low hgb so admit to obs and transfuse if hgb still in the 7s. 07/09/20 17:12 Pt HPI, ED course, and plan was discussed with Dr. Gaffney. Admitted to Dr. Gaffney. 07/10/20 11:55 Discharge - Discharge Information Problems reviewed: Yes Clinical Impression/Diagnosis: Blood transfusion during current hospitalisation Anemia Qualifiers: Anemia type: unspecified type Qualified Code(s): D64.9 - Anemia, unspecified Condition: Good - Admission Yes - Follow up/Referral - Patient Discharge Instructions - Post Discharge Activity
[2020-07-09 14:19] LABS: INR 1.57 (0.83-1.09); PROTHROMBIN TIME (PATIENT) 18.6 SEC (9.7-13.0)
[2020-07-09 14:21] LABS: ACTIVATED PTT 38.1 SECONDS (25.2-36.5)
[2020-07-09 14:39] LABS: ALBUMIN 3.7 g/dl (3.4-5.0); ALK PHOS 174 U/L (45-117); ANION GAP 8 MMOL/L (8-16); BILIRUBIN,TOTAL 0.5 mg/dL (0.2-1); CALCIUM 9.3 mg/dL (8.5-10.1); CHLORIDE 107 mmol/L (98-107); CO2 24 mmol/L (21-32); CREATININE 0.8 mg/dL (0.55-1.3); GLUCOSE,RANDOM 168 mg/dL (74-106); POTASSIUM 4.4 mmol/L (3.5-5.1); SGOT/AST 23 U/L (15-37); SGPT/ALT 26 U/L (13-61); SODIUM 139 mmol/L (136-145); TOT PROT 7.8 g/dl (6.4-8.2)
[2020-07-09 15:10] LABS: BASO % 0.4 % (0-2.0); EOS % 1.3 % (0-4.5); HEMATOCRIT 25.9 % (32.4-45.2); HEMOGLOBIN 7.3 GM/dL (10.7-15.3); LYMPH % 22.5 % (8-40); MCHC 28.3 g/dl (32.0-36.0); MEAN CELL VOLUME 63.7 fl (80-96); MEAN PLT VOLUME 8.8 fl (7.5-11.1); MONO % 6.3 % (3.8-10.2); NEUT % 69.5 % (42.8-82.8); PLATELET COUNT 289 K/MM3 (134-434); RBC 4.06 M/mm3 (3.60-5.2); RDW 22.7 % (11.6-15.6); WHITE BLOOD COUNT 8.6 K/mm3 (4.0-10.0)
--- NOTE | 2020-07-09 16:37 | PDOC ---
Documentation entered by Carmen Carpenter SCRIBE, acting as scribe for Moisés Trinidad MD. Moisés Trinidad MD: This documentation has been prepared by the Pauline herring Brenda, SCRIBE, under my direction and personally reviewed by me in its entirety. I confirm that the documentation accurately reflects all work, treatment, procedures, and medical decision making performed by me. Attending Attestation - Resident Resident Name: [email or web address] - ED Attending Attestation I have performed the following: I have examined & evaluated the patient, The case was reviewed & discussed with the resident, I agree w/resident's findings & plan, Exceptions are as noted - HPI HPI: 07/09/20 13:09 The patient is a 60 year old female with a significant PMH of HTN, HLD, DM, CVA with residual right hand numbness who presents to the emergency department, sent by Dr. Rohan Landry for blood transfusion due to low hgb. Patient notes that she is scheduled to have a carotid endarectomy and had pre-op labs yesterday. The patient denies chest pain, shortness of breath, headache and dizziness. Denies fever, chills, nausea, vomiting, diarrhea and constipation. Denies dysuria, frequency, urgency and hematuria. Allergies: NKA Social history: No reported hx of tobacco use, alcohol use or illicit drug use. PCP: Rohan Landry Vascular: Dr. Jenkins - Physicial Exam PE: 07/09/20 16:37 Vitals: Triage Vital signs reviewed General Appearance: No acute distress, well nourished well developed, Head: Atraumatic, Cardiac: Regular rate and rhythym, Lungs: Clear to auscultation bilateral, good air movement bilaterally, Abdomen: Soft, non distended, normal bowel sounds, non tender to palpation Extremities: Full range of motion to all extremities, no cyanosis, clubbing, or edema Skin: Warm and dry, no rashes or lesions, no rash, no petechiae Psych: Normal mood, normal affect - Medical Decision Making 07/09/20 16:37 60 years old sent to the emergency department for anemia we will transfuse 1 unit observe overnight EKG performed at 1457 demonstrates rhythm [address] elevations incomplete right bundle branch block T wave inversions in 3 and aVF Discharge - Discharge Information Problems reviewed: Yes Clinical Impression/Diagnosis: Blood transfusion during current hospitalisation Anemia Qualifiers: Anemia type: unspecified type Qualified Code(s): D64.9 - Anemia, unspecified Condition: Good - Follow up/Referral - Patient Discharge Instructions - Post Discharge Activity
--- NOTE | 2020-07-09 16:44 | HP ---
Admitting History and Physical - Primary Care Physician PCP: Bertha Gaffney - Admission History of Present Illness: 60 year old female with a significant PMH of HTN, HLD, DM, CVA with residual right hand numbness who presents to the emergency department, sent by Dr. Rohan Landry for blood transfusion due to low hgb. Patient notes that she is scheduled to have a carotid endarectomy and had pre-op labs yesterday. 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 Cardiovascular: Yes: HTN, Hyperlipdemia Heme/Onc: Yes: Anemia Endocrine: Yes: Diabetes Mellitus - Smoking History Smoking history: Former smoker Have you smoked in the past 12 months: Yes Aproximately how many cigarettes per day: 10 - Alcohol/Substance Use Hx Alcohol Use: No Home Medications - Allergies Allergies/Adverse Reactions: Allergies Allergy/AdvReac Type Severity Reaction Status Date / Time No Known Allergies Allergy Verified 07/09/20 12:17 - Home Medications Home Medications: Ambulatory Orders Apixaban [Eliquis -] 5 mg PO BID tablet 05/24/20 Aspirin Coated [Ecotrin -] 81 mg PO DAILY #30 tablet.ec 05/24/20 Atorvastatin Ca [Lipitor] 80 mg PO HS tablet 05/24/20 Metoprolol Tartrate 25 mg PO BID #60 tablet 05/24/20 Dapagliflozin Propanediol [Farxiga] 10 mg PO DAILY 07/09/20 Losartan Potassium 25 mg PO DAILY 07/09/20 Physical Examination Vital Signs: Vital Signs Temperature 97.6 F 07/09/20 12:17 Pulse Rate 62 07/09/20 12:17 Respiratory Rate 18 07/09/20 12:17 Blood Pressure 124/59 L 07/09/20 12:17 O2 Sat by Pulse Oximetry (%) 100 07/09/20 12:17 Constitutional: Yes: No Distress HENT: Yes: Atraumatic Neck: Yes: Supple Cardiovascular: Yes: Regular Rate and Rhythm Respiratory: Yes: CTA Bilaterally Gastrointestinal: Yes: Normal Bowel Sounds Extremities: Yes: WNL Edema: No Peripheral Pulses WNL: Yes Neurological: Yes: Alert, Oriented Labs: CBC, BMP 07/09/20 13:48 07/09/20 13:48 Problem List - Problems (1) Anemia Assessment/Plan: GETTING 1 UNIT PRBC FU CBC Code(s): D64.9 - ANEMIA, UNSPECIFIED Qualifiers: Anemia type: unspecified type Qualified Code(s): D64.9 - Anemia, u nspecified (2) Blood transfusion during current hospitalisation Code(s): [id number] - (3) Diabetes Assessment/Plan: MONITOR Code(s): E11.9 - TYPE 2 DIABETES MELLITUS WITHOUT COMPLICATIONS (4) HLD (hyperlipidemia) Assessment/Plan: ON MEDS Code(s): E78.5 - HYPERLIPIDEMIA, UNSPECIFIED (5) HTN (hypertension) Assessment/Plan: ON MEDS Code(s): I10 - ESSENTIAL (PRIMARY) HYPERTENSION Assessment/Plan Laboratory Tests 07/09/20 07/09/20 07/09/20 13:48 13:48 13:48 WBC 8.6 RBC 4.06 Hgb 7.3 L Hct 25.9 L MCV 63.7 L MCH 18.0 L MCHC 28.3 L RDW 22.7 H Plt Count 289 MPV 8.8 Absolute Neuts (auto) 6.0 Neutrophils % 69.5 Lymphocytes % 22.5 D Monocytes % 6.3 Eosinophils % 1.3 Basophils % 0.4 Nucleated RBC % 0 PT with INR 18.60 H INR 1.57 H PTT (Actin FS) 38.1 H Sodium 139 Potassium 4.4 Chloride 107 Carbon Dioxide 24 Anion Gap 8 BUN 22.0 H Creatinine 0.8 Est GFR (CKD-EPI)AfAm 92.87 Est GFR (CKD-EPI)NonAf 80.13 Random Glucose 168 H Calcium 9.3 Total Bilirubin 0.5 AST 23 ALT 26 Alkaline Phosphatase 174 H Troponin I < 0.02 Total Protein 7.8 Albumin 3.7 Stool Occult Blood Blood Type Antibody Screen Crossmatch 07/09/20 07/09/20 13:48 14:00 WBC RBC Hgb Hct MCV MCH MCHC RDW Plt Count MPV Absolute Neuts (auto) Neutrophils % Lymphocytes % Monocytes % Eosinophils % Basophils % Nucleated RBC % PT with INR INR PTT (Actin FS) Sodium Potassium Chloride Carbon Dioxide Anion Gap BUN Creatinine Est GFR (CKD-EPI)AfAm Est GFR (CKD-EPI)NonAf Random Glucose Calcium Total Bilirubin AST ALT Alkaline Phosphatase Troponin I Total Protein Albumin Stool Occult Blood Negative Blood Type A POSITIVE Antibody Screen Negative Crossmatch See Detail Active Medications Generic Name Dose Route Start Last Admin Trade Name Freq PRN Reason Stop Dose Admin Aspirin 81 mg 07/10/20 10:00 Ecotrin - PO DAILY [facility] Atorvastatin Calcium 80 mg 07/09/20 22:00 Lipitor - PO HS SANDEEP Losartan Potassium 25 mg 07/10/20 10:00 Cozaar - PO DAILY [facility] Metoprolol Tartrate 25 mg 07/09/20 22:00 Lopressor - PO BID [facility] Non-Formulary Medication 10 mg 07/10/20 10:00 Dapagliflozin Propanediol [Farxiga] PO DAILY SANDEEP DID ADMISSION FOR DR GILLIAN PINO [facility] ....ANEMIA, DONT KNOW CAUSE PMD TO LOOK INTO IT
[2020-07-09 17:30] LABS: URINE APPEARANCE CLEAR; URINE BILIRUBIN NEGATIVE (NEGATIVE); URINE COLOR YELLOW; URINE GLUCOSE (UA) 3+ (NEGATIVE); URINE KETONE NEGATIVE (NEGATIVE); URINE LEUK ESTERASE NEGATIVE (NEGATIVE); URINE NITRITE NEGATIVE (NEGATIVE); URINE PROTEIN NEGATIVE (NEGATIVE)
[2020-07-09 18:02] LABS: ANISOCYTOSIS 2+; MACROCYTOSIS 0; OVALOCYTE 1+; PLATELET ESTIMATE NORMAL
[2020-07-09] MEDS ORDERED: METOPROLOL TARTRATE 25 MG TABLET (FP) ONE (22:03)
[2020-07-09] MEDS ORDERED: ATORVASTATIN CA 80 MG TABLET (FP) ONE (22:03)
[2020-07-09] MEDS: METOPROLOL TARTRATE 25 MG TABLET (FP) PO SCH (22:11)
[2020-07-09] MEDS: ATORVASTATIN CA 80 MG TABLET (FP) PO SCH (22:11)
[2020-07-10 00:15] VITALS: BMI 26.2
[2020-07-10 07:48] LABS: BASO % 0.4 % (0-2.0); EOS % 2.3 % (0-4.5); HEMATOCRIT 26.9 % (32.4-45.2); LYMPH % 35.2 % (8-40); MCHC 29.9 g/dl (32.0-36.0); MEAN CELL VOLUME 66.5 fl (80-96); MEAN PLT VOLUME 9.4 fl (7.5-11.1); MONO % 8.6 % (3.8-10.2); NEUT % 53.5 % (42.8-82.8); PLATELET COUNT 220 K/MM3 (134-434); RBC 4.04 M/mm3 (3.60-5.2); RDW 24.4 % (11.6-15.6); WHITE BLOOD COUNT 7.4 K/mm3 (4.0-10.0)
[2020-07-10 08:16] LABS: MCH 19.9 pg (25.7-33.7)
--- NOTE | 2020-07-10 09:23 | EKG ---
Test Reason : Blood Pressure : / mmHG Vent. Rate : 058 BPM Atrial Rate : 058 BPM P-R Int : 136 ms QRS Dur : 088 ms QT Int : 442 ms P-R-T Axes : 012 -04 -05 degrees QTc Int : 433 ms SINUS BRADYCARDIA OTHERWISE NORMAL ECG WHEN COMPARED WITH ECG OF 22-MAY-2020 10:50, NO SIGNIFICANT CHANGE WAS FOUND Confirmed by Migue Chowdary MD ([id number]) on 07/10/2020 9:22:55 AM Referred By: Confirmed By:Migue Chowdary MD
[2020-07-10] MEDS: ASPIRIN COATED 81 MG TABLET.EC PO SCH (09:56)
[2020-07-10] MEDS: METOPROLOL TARTRATE 25 MG TABLET (FP) PO SCH ×2 (09:56→21:17)
[2020-07-10] MEDS: LOSARTAN POTASSIUM 25 MG TABLET PO SCH (09:56)
[2020-07-10] MEDS ORDERED: PATIENT'S OWN MEDICATION (NON-FORMULARY) (Dapagliflozin Propanediol [Farxiga] 10 MG) PO SCH (10:00)
[2020-07-10] MEDS: ATORVASTATIN CA 80 MG TABLET (FP) PO SCH (21:17)
--- NOTE | 2020-07-10 22:48 | PN ---
Progress Note, Physician History of Present Illness: Pt denies any abdominal pain - Current Medication List Current Medications: Active Medications Aspirin (Ecotrin -) 81 mg PO DAILY [facility] Last Admin: 07/10/20 09:56 Dose: 81 mg Documented by: Atorvastatin Calcium (Lipitor -) 80 mg PO HS [facility] Last Admin: 07/10/20 21:17 Dose: 80 mg Documented by: Losartan Potassium (Cozaar -) 25 mg PO DAILY [facility] Last Admin: 07/10/20 09:56 Dose: 25 mg Documented by: Metoprolol Tartrate (Lopressor -) 25 mg PO BID [facility] Last Admin: 07/10/20 21:17 Dose: 25 mg Documented by: Non-Formulary Medication (Dapagliflozin Propanediol [Farxiga]) 10 mg PO DAILY [facility] - Objective Vital Signs: Vital Signs Temperature 97.8 F 07/10/20 21:00 Pulse Rate 67 07/10/20 21:00 Respiratory Rate 18 07/10/20 21:00 Blood Pressure 125/62 07/10/20 21:00 O2 Sat by Pulse Oximetry (%) 96 07/10/20 21:00 Neck: Yes: WNL, Supple Cardiovascular: Yes: WNL, Regular Rate and Rhythm Respiratory: Yes: WNL, Regular, CTA Bilaterally Gastrointestinal: Yes: WNL, Normal Bowel Sounds, Soft Labs: CBC, BMP 07/10/20 06:12 07/09/20 13:48 INR, PTT INR 1.57 (0.83-1.09) H 07/09/20 13:48 Problem List - Problems (1) Anemia Assessment/Plan: Transfuse 2nd unit PRBC's Hemoccult is negative Monitor H/H Eliquis on hold GI consult Code(s): D64.9 - ANEMIA, UNSPECIFIED Qualifiers: Anemia type: unspecified type Qualified Code(s): D64.9 - Anemia, unspecified (2) Carotid stenosis Assessment/Plan: Pt to have carotid endartectomy next week Code(s): I65.29 - OCCLUSION AND STENOSIS OF UNSPECIFIED CAROTID ARTERY (3) Diabetes Code(s): E11.9 - TYPE 2 DIABETES MELLITUS WITHOUT COMPLICATIONS (4) HLD (hyperlipidemia) Code(s): E78.5 - HYPERLIPIDEMIA, UNSPECIFIED (5) HTN (hypertension) Code(s): I10 - ESSENTIAL (PRIMARY) HYPERTENSION
[2020-07-11 07:27] LABS: HEMATOCRIT 31.9 % (32.4-45.2); HEMOGLOBIN 9.9 GM/dL (10.7-15.3); MCH 21.4 pg (25.7-33.7); MEAN CELL VOLUME 69.1 fl (80-96); MEAN PLT VOLUME 8.8 fl (7.5-11.1); PLATELET COUNT 247 K/MM3 (134-434); RBC 4.62 M/mm3 (3.60-5.2); RDW 26.8 % (11.6-15.6); WHITE BLOOD COUNT 7.7 K/mm3 (4.0-10.0)
[2020-07-11 07:28] LABS: BASO % 0.5 % (0-2.0); EOS % 2.3 % (0-4.5); LYMPH % 34.4 % (8-40); MONO % 10.1 % (3.8-10.2); NEUT % 52.7 % (42.8-82.8)
[2020-07-11 07:54] LABS: POTASSIUM 4.1 mmol/L (3.5-5.1)
[2020-07-11 08:00] LABS: ALBUMIN 3.4 g/dl (3.4-5.0); BILIRUBIN,TOTAL 0.7 mg/dL (0.2-1); BLOOD UREA NITROGEN 21.3 mg/dL (7-18); CALCIUM 8.8 mg/dL (8.5-10.1); CREATININE 0.7 mg/dL (0.55-1.3); TOT PROT 7.4 g/dl (6.4-8.2)
[2020-07-11] MEDS: METOPROLOL TARTRATE 25 MG TABLET (FP) PO SCH (09:44)
[2020-07-11] MEDS: ASPIRIN COATED 81 MG TABLET.EC PO SCH (09:44)
[2020-07-11] MEDS: LOSARTAN POTASSIUM 25 MG TABLET PO SCH (09:44)
[2020-07-11 10:18] VITALS: BP 136/65; PULSE 59; TEMP 98
== END 2020-07-11 15:01 | disposition home or self-care (01) | DRG 812 ==
LOC: JER 12:14 → JERBED 16:35 → OBSVTOIN 18:22 → J4W 23:36
PROVIDERS: ADMIT Internal Medicine; ATTEND Internal Medicine
PROC: 30233N1 Transfusion of Nonautologous Red Blood Cells into Peripheral Vein, Percutaneous Approach (ICD-10-PCS; principal; 2020-07-09)
DX: D64.9 Anemia, unspecified (principal); I10 Essential (primary) hypertension; E78.5 Hyperlipidemia, unspecified; E11.9 Type 2 diabetes mellitus without complications; I65.29 Occlusion and stenosis of unspecified carotid artery; Z86.73 Personal history of transient ischemic attack (TIA), and cerebral infarction without residual deficits
CPT/HCPCS: 36415; 36430; 71045-TC-FY; 80053; 81003; 82272; 84484; 85025; 85610; 85730; 86850; 86900; 86901; 86922; 87086; 93005; 93010; 99285-25; G0378; P9058; U0003

== ENCOUNTER 2023-07-09 19:40 | Emergency (ER) | payer OTHER ==
[2023-07-09 19:49] VITALS: BP 148/55; PULSE 72; RESP 18; TEMP 98; BMI 28.7
[2023-07-09] MEDS ORDERED: KETOROLAC TROMETHAMINE 30 MG/1 ML VIAL IM ONE (21:19)
== END 2023-07-09 22:17 | disposition home or self-care (01) ==
LOC: JERFT 19:40
PROC: 3E0233Z Introduction of Anti-inflammatory into Muscle, Percutaneous Approach (ICD-10-PCS; principal; 2023-07-09)
DX: S13.4XXA Sprain of ligaments of cervical spine, initial encounter (principal); M54.50 Low back pain, unspecified; M54.6 Pain in thoracic spine; M54.2 Cervicalgia; V43.52XA Car driver injured in collision with other type car in traffic accident, initial encounter; Y92.410 Unspecified street and highway as the place of occurrence of the external cause
CPT/HCPCS: 99284-25

== ENCOUNTER 2024-02-18 14:03 | Inpatient (IN) | payer OTHER ==
[2024-02-18 14:11] VITALS: BMI 29.2
[2024-02-18 15:02] LABS: BASO % 0.7 % (0-2.0); EOS % 0.5 % (0-4.5); HEMATOCRIT 18.8 % (32.4-45.2); LYMPH % 18.9 % (8-40); MCHC 26.2 g/dl (32.0-36.0); MEAN CELL VOLUME 59.4 fl (80-96); MONO % 6.9 % (3.8-10.2); PLATELET COUNT 317 10^3/uL (134-434); RBC 3.16 M/mm3 (3.60-5.2); RDW 22.2 % (11.6-15.6); WHITE BLOOD COUNT 7.3 K/mm3 (4.0-10.0)
[2024-02-18 15:04] LABS: MCH 15.5 pg (25.7-33.7)
[2024-02-18 15:05] LABS: HEMOGLOBIN 4.9 GM/dL (10.7-15.3)
[2024-02-18 15:06] LABS: INR 1.26 (0.83-1.09); PROTHROMBIN TIME (PATIENT) 14.6 SEC (9.7-13.0)
[2024-02-18 15:25] LABS: POTASSIUM 4.5 mmol/L (3.5-5.1)
[2024-02-18 15:27] LABS: CALCIUM 8.9 mg/dL (8.5-10.1)
[2024-02-18 15:28] LABS: ALBUMIN 3.2 g/dl (3.4-5.0); BLOOD UREA NITROGEN 19.5 mg/dL (7-18); MAGNESIUM 2.2 mg/dL (1.8-2.4)
[2024-02-18 15:29] LABS: ACTIVATED PTT 23.3 SECONDS (25.2-36.5)
[2024-02-18 15:31] LABS: CREATININE 0.9 mg/dL (0.55-1.3)
[2024-02-18 15:32] LABS: BILIRUBIN,TOTAL 0.6 mg/dL (0.2-1); TOT PROT 7.1 g/dl (6.4-8.2)
[2024-02-18 16:01] LABS: ANISOCYTOSIS 3+; MACROCYTOSIS 3+
[2024-02-18] MEDS ORDERED: PANTOPRAZOLE SODIUM 40 MG VIAL ONE (16:34)
[2024-02-18] MEDS: PANTOPRAZOLE SODIUM 40 MG VIAL IVPUSH ONE (16:38)
[2024-02-18] MEDS: DEXTROSE 5%-0.45% SALINE 1,000 ML IV SCH (20:58)
[2024-02-18] MEDS: ATORVASTATIN CA 80 MG TABLET (FP) PO SCH (21:50)
[2024-02-18] MEDS: INSULIN ASPART SLIDING SCALE (NOVOLOG) 1 VIAL SQ SCH (21:50)
[2024-02-19 06:53] LABS: BASO % 0.8 % (0-2.0); EOS % 1.9 % (0-4.5); HEMOGLOBIN 7.5 GM/dL (10.7-15.3); MCHC 29.8 g/dl (32.0-36.0); MEAN PLT VOLUME 8.2 fl (7.5-11.1); MONO % 7.8 % (3.8-10.2); NEUT % 57.5 % (42.8-82.8); PLATELET COUNT 245 10^3/uL (134-434); RBC 3.74 M/mm3 (3.60-5.2); RDW 28.8 % (11.6-15.6); WHITE BLOOD COUNT 6.9 K/mm3 (4.0-10.0)
[2024-02-19 07:08] LABS: POTASSIUM 4.3 mmol/L (3.5-5.1)
[2024-02-19 07:12] LABS: ALBUMIN 3.1 g/dl (3.4-5.0); CALCIUM 8.8 mg/dL (8.5-10.1)
[2024-02-19 07:13] LABS: BLOOD UREA NITROGEN 18.4 mg/dL (7-18)
[2024-02-19 07:16] LABS: CREATININE 0.6 mg/dL (0.55-1.3)
[2024-02-19 07:17] LABS: BILIRUBIN,TOTAL 1.5 mg/dL (0.2-1); TOT PROT 6.6 g/dl (6.4-8.2)
[2024-02-19] MEDS: PANTOPRAZOLE SODIUM 40 MG VIAL IVPUSH SCH (09:19)
[2024-02-19] MEDS: FUROSEMIDE 40 MG/4 ML INJECTABLE VIAL IVPUSH ONE (11:09)
[2024-02-19] MEDS: METOPROLOL TARTRATE 25 MG TABLET (FP) PO SCH (11:09)
[2024-02-19] MEDS: amLODIPine BESYLATE 5 MG TABLET (FP) PO SCH (15:04)
[2024-02-19 21:49] LABS: URINE APPEARANCE CLEAR; URINE BILIRUBIN NEGATIVE (NEGATIVE); URINE COLOR YELLOW; URINE GLUCOSE (UA) 3+ (NEGATIVE); URINE KETONE NEGATIVE (NEGATIVE); URINE LEUK ESTERASE NEGATIVE (NEGATIVE); URINE NITRITE NEGATIVE (NEGATIVE); URINE PROTEIN NEGATIVE (NEGATIVE)
[2024-02-19 21:52] LABS: EPI CELLS 16 /uL (0-25.1); HYALINE CASTS 0 /uL (0-3.1); URINE BACTERIA 176 /uL (0-1359); URINE RBC 10 /uL (0-23.9); URINE WBC 27 /uL (0-25.8)
[2024-02-19] MEDS: ACETAMINOPHEN 1000 MG/100 ML BAG IVPB ONE (22:16)
[2024-02-20 08:31] LABS: BASO % 0.7 % (0-2.0); EOS % 4.1 % (0-4.5); HEMATOCRIT 29.1 % (32.4-45.2); HEMOGLOBIN 9.1 GM/dL (10.7-15.3); MCH 21.2 pg (25.7-33.7); MCHC 31.2 g/dl (32.0-36.0); MEAN PLT VOLUME 8.2 fl (7.5-11.1); MONO % 7.4 % (3.8-10.2); NEUT % 59.8 % (42.8-82.8); PLATELET COUNT 224 10^3/uL (134-434); RBC 4.28 M/mm3 (3.60-5.2); RDW 28.5 % (11.6-15.6); WHITE BLOOD COUNT 5.6 K/mm3 (4.0-10.0)
[2024-02-20 08:56] LABS: POTASSIUM 3.9 mmol/L (3.5-5.1)
[2024-02-20 09:09] LABS: BLOOD UREA NITROGEN 13.1 mg/dL (7-18); CALCIUM 8.9 mg/dL (8.5-10.1)
[2024-02-20 09:11] LABS: CREATININE 0.6 mg/dL (0.55-1.3)
[2024-02-20 09:13] LABS: TOT PROT 6.3 g/dl (6.4-8.2)
[2024-02-20 09:15] LABS: BILIRUBIN,TOTAL 1.1 mg/dL (0.2-1)
[2024-02-20 09:49] LABS: INR 1.17 (0.83-1.09); PROTHROMBIN TIME (PATIENT) 13.6 SEC (9.7-13.0)
[2024-02-20] MEDS: ACETAMINOPHEN 1000 MG/100 ML BAG IVPB PRN (13:50)
[2024-02-21 07:35] LABS: BASO % 0.8 % (0-2.0); EOS % 3.7 % (0-4.5); HEMOGLOBIN 8.5 GM/dL (10.7-15.3); LYMPH % 32.7 % (8-40); MCH 20.8 pg (25.7-33.7); MCHC 30.2 g/dl (32.0-36.0); MEAN CELL VOLUME 68.8 fl (80-96); MONO % 8.6 % (3.8-10.2); NEUT % 54.2 % (42.8-82.8); PLATELET COUNT 209 10^3/uL (134-434); RBC 4.07 M/mm3 (3.60-5.2)
[2024-02-21 07:54] LABS: POTASSIUM 3.8 mmol/L (3.5-5.1)
[2024-02-21 07:56] LABS: ALBUMIN 2.9 g/dl (3.4-5.0); CALCIUM 8.4 mg/dL (8.5-10.1)
[2024-02-21 07:58] LABS: BLOOD UREA NITROGEN 10.4 mg/dL (7-18)
[2024-02-21 08:00] LABS: CREATININE 0.6 mg/dL (0.55-1.3)
[2024-02-21 08:02] LABS: TOT PROT 6.1 g/dl (6.4-8.2)
[2024-02-21] MEDS: SODIUM CHLORIDE NASAL SPRAY 44 ML BOTTLE NS ONE (13:38)
[2024-02-21] MEDS ORDERED: ACETAMINOPHEN 1000 MG/100 ML BAG IVPB PRN (21:21)
[2024-02-22 08:19] LABS: POTASSIUM 3.8 mmol/L (3.5-5.1)
[2024-02-22 08:23] LABS: BASO % 0.8 % (0-2.0); EOS % 3.7 % (0-4.5); HEMATOCRIT 31.1 % (32.4-45.2); MCH 20.4 pg (25.7-33.7); MEAN CELL VOLUME 70.2 fl (80-96); MEAN PLT VOLUME 8.1 fl (7.5-11.1); MONO % 10.3 % (3.8-10.2); NEUT % 57.2 % (42.8-82.8); PLATELET COUNT 237 10^3/uL (134-434); RBC 4.43 M/mm3 (3.60-5.2); RDW 30.6 % (11.6-15.6); WHITE BLOOD COUNT 5.2 K/mm3 (4.0-10.0)
[2024-02-22 08:24] LABS: CALCIUM 9.3 mg/dL (8.5-10.1)
[2024-02-22 08:25] LABS: ALBUMIN 3.1 g/dl (3.4-5.0); BLOOD UREA NITROGEN 8.2 mg/dL (7-18)
[2024-02-22 08:29] LABS: BILIRUBIN,TOTAL 1.2 mg/dL (0.2-1); CREATININE 0.6 mg/dL (0.55-1.3); TOT PROT 6.6 g/dl (6.4-8.2)
[2024-02-22 09:17] LABS: ANISOCYTOSIS 3+; MACROCYTOSIS 0; OVALOCYTE 1+
[2024-02-23 06:51] LABS: BASO % 0.8 % (0-2.0); EOS % 3.4 % (0-4.5); HEMATOCRIT 30.3 % (32.4-45.2); MCH 20.6 pg (25.7-33.7); MCHC 29.6 g/dl (32.0-36.0); MEAN CELL VOLUME 69.7 fl (80-96); MEAN PLT VOLUME 8.1 fl (7.5-11.1); MONO % 11.1 % (3.8-10.2); NEUT % 53.7 % (42.8-82.8); PLATELET COUNT 223 10^3/uL (134-434); RBC 4.35 M/mm3 (3.60-5.2); RDW 30.6 % (11.6-15.6); WHITE BLOOD COUNT 6.1 K/mm3 (4.0-10.0)
[2024-02-23 07:11] LABS: POTASSIUM 4.1 mmol/L (3.5-5.1)
[2024-02-23 07:14] LABS: CALCIUM 9.1 mg/dL (8.5-10.1)
[2024-02-23 07:15] LABS: BLOOD UREA NITROGEN 12.6 mg/dL (7-18)
[2024-02-23 07:21] LABS: BILIRUBIN,TOTAL 0.9 mg/dL (0.2-1); CREATININE 0.7 mg/dL (0.55-1.3); TOT PROT 6.7 g/dl (6.4-8.2)
[2024-02-23 14:09] LABS: IG G QN IMMUNOGLOBULIN 1113 mg/dL (586-1602); IGG SUBCLASS 1 695 mg/dL (248-810); IGG SUBCLASS 2 269 mg/dL (130-555); IGG SUBCLASS 3 29 mg/dL (15-102)
[2024-02-23] MEDS: BISACODYL 5 MG TABLET.DR (FP) PO ONE (14:20)
[2024-02-23] MEDS: PEG 3350/NA SULF BICARB CL/KCL 4000 ML SOLN.RECON PO ONE (18:37)
[2024-02-24 14:59] VITALS: RESP 18; TEMP 97.7
[2024-02-24] MEDS: LISINOPRIL 5 MG TABLET PO SCH (18:35)
[2024-02-24 18:36] VITALS: BP 124/50; PULSE 64
[2024-02-25] MEDS ORDERED: metoPROLOL SUCCINATE 25 MG TAB.SR.24H (FP) PO SCH (10:00)
== END 2024-02-24 19:35 | disposition home or self-care (01) | DRG 811 ==
LOC: JER 14:03 → JERBED 16:15 → J4W 18:12
PROVIDERS: ADMIT Internal Medicine; ATTEND Internal Medicine
PROC: 30233N1 Transfusion of Nonautologous Red Blood Cells into Peripheral Vein, Percutaneous Approach (ICD-10-PCS; 2024-02-18)
PROC: 0DB68ZX Excision of Stomach, Via Natural or Artificial Opening Endoscopic, Diagnostic (ICD-10-PCS; 2024-02-24)
PROC: 0W3P8ZZ Control Bleeding in Gastrointestinal Tract, Via Natural or Artificial Opening Endoscopic (ICD-10-PCS; 2024-02-24)
PROC: 0DJD8ZZ Inspection of Lower Intestinal Tract, Via Natural or Artificial Opening Endoscopic (ICD-10-PCS; principal; 2024-02-24 11:30)
DX: D64.9 Anemia, unspecified (principal); K31.811 Angiodysplasia of stomach and duodenum with bleeding; K92.2 Gastrointestinal hemorrhage, unspecified; I10 Essential (primary) hypertension; E78.5 Hyperlipidemia, unspecified; E11.9 Type 2 diabetes mellitus without complications; K29.70 Gastritis, unspecified, without bleeding; I65.29 Occlusion and stenosis of unspecified carotid artery; R79.89 Other specified abnormal findings of blood chemistry; Z86.73 Personal history of transient ischemic attack (TIA), and cerebral infarction without residual deficits
CPT/HCPCS: 36415; 36430; 71046-TC-FY; 76705-TC; 80053; 80061; 81003; 82272; 82784; 82787; 82962; 83036; 83516; 83735; 83880; 83883; 84439; 84443; 84484; 85025; 85610; 85730; 86038; 86376; 86705; 86708; 86709; 86850; 86900; 86901; 86922; 87086; 87340; 87517; 87522; 88305-TC; 93005; 93010; 93306-TC; 99285-25; J0131; P9058

== ENCOUNTER 2024-07-06 13:11 | Emergency (ER) | payer OTHER ==
[2024-07-06 13:28] VITALS: BP 146/66; PULSE 68; RESP 19; TEMP 97.7; BMI 29.2
[2024-07-06] MEDS ORDERED: ACETAMINOPHEN 325 MG TABLET (FP) ONE (13:58)
[2024-07-06] MEDS: ACETAMINOPHEN 325 MG TABLET (FP) PO ONE (14:04)
[2024-07-06 14:47] LABS: BASO % 0.7 % (0-2.0); EOS % 1.6 % (0-4.5); HEMATOCRIT 32.8 % (32.4-45.2); HEMOGLOBIN 9.9 GM/dL (10.7-15.3); LYMPH % 22.9 % (8-40); MCH 21.5 pg (25.7-33.7); MCHC 30.1 g/dl (32.0-36.0); MEAN CELL VOLUME 71.6 fl (80-96); MEAN PLT VOLUME 7.1 fl (7.5-11.1); MONO % 8.3 % (3.8-10.2); NEUT % 66.5 % (42.8-82.8); PLATELET COUNT 357 10^3/uL (134-434); RBC 4.59 M/mm3 (3.60-5.2); RDW 16.3 % (11.6-15.6); WHITE BLOOD COUNT 9.3 K/mm3 (4.0-10.0)
[2024-07-06 15:13] LABS: POTASSIUM 4.5 mmol/L (3.5-5.1)
[2024-07-06 15:15] LABS: CALCIUM 10.2 mg/dL (8.5-10.1)
[2024-07-06 15:16] LABS: BLOOD UREA NITROGEN 17.6 mg/dL (7-18)
[2024-07-06 15:19] LABS: CREATININE 0.7 mg/dL (0.55-1.3)
[2024-07-06 15:20] LABS: BILIRUBIN,TOTAL 0.5 mg/dL (0.2-1); TOT PROT 7.8 g/dl (6.4-8.2)
[2024-07-06 15:21] LABS: ANISOCYTOSIS 2+; MACROCYTOSIS 0
== END 2024-07-06 16:04 | disposition home or self-care (01) ==
LOC: JER 13:11
DX: R00.2 Palpitations (principal); R51.9 Headache, unspecified
CPT/HCPCS: 36415; 80053; 84484; 85025; 93005; 93010; 99284-25